=== PATIENT | female | born 1950 | race Caucasian/White ===

== ENCOUNTER 2018-11-30 10:49 | Outpatient (CLI) | payer MEDICARE, BC, SELFPAY ==
[2018-11-30 13:23] LABS: ALT 22 U/L (12-78); AST 16 U/L (15-37); Albumin 3.6 g/dL (3.4-5.0); Alkaline Phosphatase 117 U/L (46-116); Anion Gap 7.8 mmol/L (3-11); BUN 20 mg/dL (7-18); Bilirubin, Total 0.4 mg/dL (0.2-1.0); CO2 29.2 mmol/L (21.0-32.0); CREATININE 1.02 mg/dL (0.55-1.02); Calcium 9.3 mg/dL (8.5-10.1); Chloride 102 mmol/L (98-107); Estimated GFR 53.89 (mL/min/1.73m2); Glucose 92 mg/dL (70-100); Potassium 4.8 mmol/L (3.5-5.1); Sodium 139 mmol/L (136-145); Total Protein 6.8 g/dL (6.4-8.2)
[2018-11-30 13:32] LABS: Hemoglobin A1C 5.8 % (4.5-6.2)
== END 2018-11-30 11:09 ==
PROVIDERS: PCP Family Medicine; Visit Provider Family Medicine
DX: R73.01 Impaired fasting glucose (principal); E78.5 Hyperlipidemia, unspecified
CPT/HCPCS: 36415; 80053; 83036

== ENCOUNTER 2019-01-04 00:10 | Outpatient (CLI) | payer MEDICARE, BC, SELFPAY ==
--- NOTE | 2019-01-04 10:51 | DI.MAMMO_ITS ---
SYMPTOM/DIAGNOSIS: SCREENING, Z12.31 MAMMOGRAMS: Mammograms were interpreted according to the usual protocol including computer analysis with CAD system, tomosynthesis and C view imaging. Comparison is made with prior examinations. Breast density, Category B. No suspicious masses or microcalcifications are seen. There is no definite evidence of malignancy. IMPRESSION: Negative mammogram. Routine screening is recommended. Category 1. MQSA ASSESSMENT OF FINDINGS: Negative. Category 1. Patient will receive a letter notifying them of these results. BI-RADS category B. There are scattered areas of fibroglandular density.
== END 2019-01-04 00:30 ==
PROVIDERS: PCP Family Medicine; Visit Provider Family Medicine
DX: Z12.31 Encounter for screening mammogram for malignant neoplasm of breast (principal)
CPT/HCPCS: 77063; 77067

== ENCOUNTER 2019-10-07 14:38 | Outpatient (REF) | payer MEDICARE, BC, SELFPAY | END 2019-10-07 14:58 | LOC: LBN 14:38 | PROVIDERS: PCP Family Medicine; Visit Provider Family Medicine | DX: R19.7 Diarrhea, unspecified (principal) | CPT/HCPCS: 87177 ==

== ENCOUNTER 2020-02-14 21:46 | Observation (INO) | payer MEDICARE, BC, SELFPAY ==
[2020-02-14] VITALS (10 sets, daily range): BP systolic 116–128; BP diastolic 73–85; PULSE 59–75; RESP 14–26; TEMP 36.9; O2SAT 96–99
--- NOTE | 2020-02-14 22:08 | ED.GENADUL_ITS ---
Discharge Plan Disposition Patient Disposition: [facility] INPATIENT Condition: Stable Discharge Details Chief Complaint: Chest Pain Clinical Impression: Chest pain Admit Date/Time: 02/15/20 01:12 Admit Provider: Pastor Moreno Attending Provider: Pastor Moreno Primary Care Provider: Anum Thomas ED Provider: Abdoulaye Ibarra Medical Decision Making 70-year-old female presents from home via EMS. She reports 3 days of intermittent episodes of chest pressure and pushing it is associated with shortness of breath. It was worsened with climbing up a hill. She did not have syncope. She had a question of subjective elevated temperature but no do cumented fever. She was given 324 mg of aspirin by EMS. She arrives with unremarkable vital signs. Her initial EKG reveals normal sinus rhythm with a rate of 65, T wave inversions present in the anteroseptal leads, there is no ST segment elevation present, there is no comparison available. Chest x-ray with senescent changes, no acute infiltrate or other acute abnormality reported. Reported at 1135 pm, the patient's laboratories were reported as hemolyzed and being redrawn. Patient remains improved. Her laboratories are reassuring with an unremarkable d-dimer, negative troponin. With the escalating pattern of chest tightness is worse with exertion, T wave inversions on EKG, I do feel she merits admission for further management and rule out of myocardial ischemia. Lab Data Lab results reviewed: Yes I reviewed the patient's lab results. Labs: Laboratory Results - last 24 hr 02/14/20 02/14/20 02/14/20 22:14 22:14 23:30 WBC Cancelled RBC Cancelled Hgb Cancelled Hct Cancelled MCV Cancelled MCH Cancelled MCHC Cancelled RDW Cancelled Plt Count Cancelled MPV Cancelled Immature Gran % Cancelled Neutrophils % Cancelled Band Neutrophils % Cancelled Lymphocytes % Cancelled Atypical Lymphs % Cancelled Monocytes % Cancelled Eosinophils % Cancelled Basophils % Cancelled Metamyelocytes % Cancelled Myelocytes % Cancelled Promyelocytes % Cancelled Absolute Neutrophils Cancelled Absolute Lymphocytes Cancelled Absolute Monocytes Cancelled Absolute Eosinophils Cancelled Absolute Basophils Cancelled Nucleated RBCs Cancelled Differential Comment Cancelled Other Cell Type Cancelled RBC Morphology Cancelled Polychromasia Cancelled Hypochromasia Cancelled Poikilocytosis Cancelled Basophilic Stippling Cancelled Anisocytosis Cancelled Microcytosis Cancelled Macrocytosis Cancelled Spherocytes Cancelled Target Cells Cancelled Tear Drop Cells Cancelled Ovalocytes Cancelled Stomatocytes Cancelled [place] Bodies Cancelled Chelle Cells Cancelled Acanthocytes (Spur) Cancelled Schistocytes Cancelled D-Dimer 359 Sodium 141 Potassium 4.3 Chloride 106 Carbon Dioxide 28.0 Anion Gap 7.0 BUN 16 Creatinine 0.94 Estimated GFR/1.73 m2 58.87 Glucose 112 H Calcium 9.7 Magnesium 2.0 Total Bilirubin 0.3 AST 21 ALT 31 Alkaline Phosphatase 105 Troponin I < 0.05 Total Protein 7.2 Albumin 3.7 02/15/20 22:14 WBC 6.35 RBC 4.37 Hgb 14.4 Hct 42.4 MCV 97.0 H MCH 33.0 MCHC 34.0 RDW 12.3 Plt Count 248 MPV 11.3 H Immature Gran % 0.2 Neutrophils % 63.5 Band Neutrophils % Lymphocytes % 25.8 Atypical Lymphs % Monocytes % 6.9 Eosinophils % 3.0 Basophils % 0.6 Metamyelocytes % Myelocytes % Promyelocytes % Absolute Neutrophils 4.03 Absolute Lymphocytes 1.64 Absolute Monocytes 0.44 Absolute Eosinophils 0.19 Absolute Basophils 0.04 Nucleated RBCs Differential Comment Other Cell Type RBC Morphology Polychromasia Hypochromasia Poikilocytosis Basophilic Stippling Anisocytosis Microcytosis Macrocytosis Spherocytes Target Cells Tear Drop Cells Ovalocytes Stomatocytes [place] Bodies [place]o Cells Acanthocytes (Spur) Schistocytes D-Dimer Sodium Potassium Chloride Carbon Dioxide Anion Gap BUN Creatinine Estimated GFR/1.73 m2 Glucose Calcium Magnesium Total Bilirubin AST ALT Alkaline Phosphatase Troponin I Total Protein Albumin HPI General Mode of arrival: EMS . Date/Time Provider Initiated Documentation: 02/14/20 21:51 . Limitations to Documentation: no limitations . Information obtained by: patient and EMS . History of Present Illness 70 year old F presents to the emergency department with the chief complaint of Intermittent chest pressure for 3 days, described as moderate, Quality is described as dull, and is localized to the chest. Patient reports no radiation. Patient started experiencing this hour(s) and it has been intermittent. No relieving factors improve symptom(s), No exacerbating factors reported . Patient notes chest pain and shortness of breath; denies syncope. Patient did receive the following treatments prior to arrival, none Related Data Home Medications Medication Instructions Recorded Confirmed aspirin [Aspirin Low-Strength] 81 mg PO DAILY tab-cap 02/08/13 02/14/20 desipramine 25 mg tablet 25 mg PO BID #180 tab-cap 06/06/19 02/14/20 estradiol 10 mcg vaginal tablet 10 mcg VG three times weekly #36 06/06/19 02/14/20 tab nystatin 100,000 unit/gram topical 1 applic TOPICAL BID PRN #15 gm 06/06/19 02/14/20 cream propranolol 80 mg tablet 80 mg PO BID #180 tab-cap 06/06/19 02/14/20 vjfiwhs-ronnemjimv-RXC-caffeine 30 1 cap PO BID PRN #20 tab-cap 12/08/19 02/14/20 mg-50 mg-325 mg-40 mg capsule lorazepam 0.5 mg tablet 0.5 mg PO BID PRN #60 tab 01/19/20 02/14/20 albuterol sulfate 90 mcg/actuation 2 puff IH QID #8.5 gm 02/14/20 02/14/20 aerosol inhaler Previous Rx's Medication Instructions Recorded desipramine 25 mg tablet 25 mg PO BID #180 tab-cap 06/06/19 estradiol 10 mcg vaginal tablet 10 mcg VG three times weekly #36 06/06/19 tab nystatin 100,000 unit/gram topical 1 applic TOPICAL BID PRN #15 gm 06/06/19 cream propranolol 80 mg tablet 80 mg PO BID #180 tab-cap 06/06/19 nuocqrz-ndbjthlvfe-FHF-caffeine 30 1 cap PO BID PRN #20 tab-cap 12/08/19 mg-50 mg-325 mg-40 mg capsule lorazepam 0.5 mg tablet 0.5 mg PO BID PRN #60 tab 01/19/20 albuterol sulfate 90 mcg/actuation 2 puff IH QID #8.5 gm 02/14/20 aerosol inhaler Allergies Allergy/AdvReac Type Severity Reaction Status Date / Time shellfish derived Allergy Severe Can't Unverified 02/14/20 21:57 breath sumatriptan succinate Allergy Intermediate Hives Unverified 02/14/20 21:57 [From Imitrex] General Stated Complaint: Chest Pain OXANA: 2 Review of Systems Narrative: Travel to [place] but returned on November 16. No leg pain or swelling. No fever. No cough. 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; now abstinant Alcohol abuse (Inactive) Anemia (Resolved) Anemia (Inactive) Atrophy of vagina (Chronic) Lilo infection (Resolved) 05/17/15 Candidiasis (Inactive 05/17/15) Chlamydia infection (Resolved) Chlamydial infection (Inactive) Chronic left shoulder pain (Chronic 03/30/18) Depressive disorder (Resolved) chronic family problems; prolonged use of norpramine Endometriosis (Resolved) s/p laparotomy; exploratory Endometriosis (Inactive) Hiatal hernia (Chronic) Hyperlipidemia (Chronic 10/25/12) Impaired fasting glucose (Resolved) Intention tremor (Resolved) Internal hemorrhoids (Chronic) 11/15/14; [facility] Low back pain (Resolved 08/27/15) Osteopenia (Chronic) T scores -1.3; -1.0; -1.8 Pain of cervical facet joint (Chronic 08/08/13) Raynaud's disease (Chronic) Rectal hemorrhage (Resolved) internal hemorrhoid; hyperplastic tubular adenoma polyps Shoulder pain (Resolved) 05/22/14 Tension-type headache (Chronic) cyclical and occ. migraine Tubular adenoma (Resolved) Urinary tract infectious disease (Resolved) recurrent; prophylactic after intercourse most likely cystitis,not infectious Urinary tract infectious disease (Inactive) Surgical History section Colonoscopy - [facility] 2002;2013 H/O section (Resolved) History of bilateral ligation of fallopian tubes (Inactive) History of bilateral tubal ligation (Resolved) History of section (Inactive) Laparotomy Ligation of fallopian tube Status post laparotomy (Inactive) Family History Mother , AGE 94 Heart disease Hyperlipidemia Stroke Father , AGE 98 Lung cancer Brother No problems noted. Maternal Grandfather , AGE 36 Aneurysm Stroke Paternal Grandfather , GALLBLADDER at age 76 Stroke Heart disease Maternal Grandmother , AGE 98 Colon cancer Paternal Grandmother , AGE 75 Stroke Heart disease Son No problems noted. Son Lymphoma Social History (Reviewed 02/15/20 @ 01:27 by Pastor Jacques Smoking/Tobacco Use Status: Former Tobacco Use Quit Date: 11/16/73 Second Hand Exposure: Yes Alcohol Intake: current Alcohol Intake frequency: a few times a week Alcohol type: other Drug use: Never Substance use type: does not use Caregiver/Support person: No Household members: none Housing: house Communication Needs: Hard of Hearing Do you need help understanding health information?: Never Pets and animals: Yes Pets and animals: dog(s) Sexually active: No Do you think of yourself as: straight/heterosexual Current gender identity: female What is your relationship status?: How often do you talk on the phone with friends or family?: twice per week How often do you get together with friends or relatives?: twice per week How often do you attend uatsdin or uatsdin services?: 1-3 times per year Do you belong to any clubs or organized social groups?: yes Panel score (0-1 are the most socially isolated patients): 2 What type of physical activity do you participate in: other Details: snowshoeing Duration: 45-60 minutes/day Frequency: 3-4 times per week Neris/Anabaptism: Jew Special neris needs: No Seatbelt use: always Helmet use: Yes Helmet use: always Drive intox or ride w/intox bus driver supervisor: No Do you feel safe at home: Yes Do you feel safe in your relationship?: Yes Exam Narrative Exam Narrative: GEN: awake, alert, oriented 3. Pleasant, well groomed, interactive. HEAD: Normocephalic, atraumatic ENT: Mucous membranes moist, oropharynx unremarkable, External ear exam unremarkable EYES: PERRL, EOMI NECK: Full ROM, no GUEVARA, no menigismus CHEST/RESP: Nontender, clear to auscultation bilateral, no wheeze/rhonchi/rales CARDIOVASCULAR: RRR, no murmur, rub renny. 2+ Rad pulse bilateral ABDOMEN: Soft, nontender, no mass. +Bowel sounds EXT: Full ROM, no edema, no rash Neuro: Grossly normal neurologic exam, conversant, interactive. Psych: Speech fluent, thoughts congruent, affect normal Course Vital Signs Vital signs: Vital Signs Temperature 36.9 C 02/14/20 21:48 Pulse 75 02/14/20 21:48 Respiratory Rate 16 03/31/20 21:48 Temperature 36.9 C 03/31/20 21:48 Temperature Source Oral 02/14/20 21:48 Pulse 75 02/14/20 21:48 Respiratory Rate 15 02/14/20 21:58 Respiratory Effort 02/14/20 21:58 Blood Pressure Position Sitting 02/14/20 21:48 Oxygen Delivery Method Room Air 02/14/20 21:48 Oxygen Flow Rate 0 02/14/20 21:48
--- NOTE | 2020-02-14 22:40 | DI.RAD_ITS ---
EXAM: XR CHEST 2V PA LATERAL CLINICAL HISTORY: central chest pressure TECHNIQUE: 2D digital imaging was performed. COMPARISON: CHEST 2 VIEWS PA,LAT from 02/18/2018 FINDINGS: MEDIASTINUM: The aorta is mildly ectatic.. HEART: Normal size. PULMONARY VASCULATURE: Normal. LUNGS: Clear. PLEURAL SPACE: No pleural effusion or pneumothorax. BONE:Degenerative changes of the thoracic spine. IMPRESSION: No acute pulmonary findings. DATA REPOSITORY: RADIATION DOSE DELIVERED:
--- NOTE | 2020-02-14 23:06 | DI.VRAD_ITS ---
PROCEDURE INFORMATION: Exam: XR Chest, 2 Views Exam date and time: 02/14/2020 10:36 PM Age: 70 years old Clinical indication: Chest pain; Other: Central chest pressure TECHNIQUE: Imaging protocol: XR of the chest Views: 2 views. COMPARISON: CR CHEST 2 VIEWS PA,LAT 02/18/2018 9:44 AM FINDINGS: Lungs: Unremarkable. No consolidation. Pleural space: Unremarkable. No pleural effusion. No pneumothorax. Heart/Mediastinum: Unremarkable. No cardiomegaly. Vasculature: There is a tortuous descending aorta. Bones/joints: Unremarkable. IMPRESSION: Senescent changes with no acute infiltrate or other acute abnormality evident. Dictated and Authenticated by: Cosme Fowler MD. Ordering:CEASAR Stanford MD
[2020-02-14 23:07] LABS: D-Dimer 359 ng/mlFEU (<500)
[2020-02-14 23:58] LABS: ALT 31 U/L (14-59); AST 21 U/L (15-37); Albumin 3.7 g/dL (3.4-5.0); Alkaline Phosphatase 105 U/L (46-116); BUN 16 mg/dL (7-18); Bilirubin, Total 0.3 mg/dL (0.2-1.0); CREATININE 0.94 mg/dL (0.55-1.02); Calcium 9.7 mg/dL (8.5-10.1); Chloride 106 mmol/L (98-107); Estimated GFR 58.87 (mL/min/1.73m2); Glucose 112 mg/dL (74-106); Potassium 4.3 mmol/L (3.5-5.1); Sodium 141 mmol/L (136-145); Total Protein 7.2 g/dL (6.4-8.2)
[2020-02-15] VITALS (8 sets, daily range): BP systolic 99–120; BP diastolic 63–78; PULSE 60–71; RESP 15–19; TEMP 35.9–37; O2SAT 95–99
[2020-02-15 00:05] LABS: Troponin I < 0.05 ng/Ml (<0.06)
[2020-02-15 00:11] LABS: Abs Immature Grans 0.01 k/cumm (0.0-0.09); Absolute Basophil Count 0.04 k/cumm (0.0-0.2); Absolute Eosinophil Count 0.19 k/cumm (0.0-0.7); Absolute Lymphocyte Count 1.64 k/cumm (1.2-3.4); Absolute Monocyte Count 0.44 k/cumm (0.11-0.7); Absolute Neutrophil Count 4.03 k/cumm (1.2-6.7); Basophils % 0.6; HCT 42.4 % (36.0-46.0); HGB 14.4 g/dL (12.0-15.5); Immature Grans % 0.2 %; Lymphocytes % 25.8; Mean Platelet Volume 11.3 fL (8.0-11.0); Monocytes % 6.9; Neutrophils % 63.5; Platelet Count 248 x1000/uL (130-400); RBC 4.37 m/cumm (4.00-5.20); RBC Distribution Width 12.3 % (11.7-14.6)
[2020-02-15 00:12] LABS: White Blood Cell Count 6.35 k/cumm (4.4-10.8)
--- NOTE | 2020-02-15 01:27 | HPE_ITS ---
Date of service: 02/15/20 Time of Service: 01:27 Assessment and Plan Assessment and plan (1) Atypical chest pain: Start date: 02/14/20 Status: Acute Assessment and plan: This is a 70-year-old lady who is very physically active and traveling recently to [facility] with exertional retrosternal pressure and associated slight dyspnea but also diaphoresis with her episode just prior to reporting to the ED. Her EKG did show some T wave inversions with no comparison available. Her initial troponins have been negative. She will have a repeat EKG and reevaluation of risk factors for CAD with normal cardiology consultation and stress test prior to charge if available. This could done as an outpatient if her chest discomfort is resolving during this observation. She does have a history of panic attacks and anxiety as well as a history of headaches which have not been problematic with the episode. We could consider increasing her Ativan since this did seem to help when she was for admitted and trying to sleep. Of concern is her persistent residual sensation in her chest. We need to follow-up her EKG this morning. I also will check her lipid profile this morning. History of Present Illness History of Present Illness Chief Complaint: Intermittent chest pain with exertion Narrative: This is a 70-year-old lady who really has been traveling to [place], [place] at the first the year after spending 1 month with her son at the end of 2018 and then traveling locally in [place] more than 3 weeks ago with friends. She began to have symptoms of retro-sternal chest pressure as if an anvil was sitting on her chest 5 days prior to admission with her daily walks. Did have associated dyspnea and on the day of admission to the ED she did have associated diaphoresis. She had no radiation of the pain, no nausea or vomiting and no lightheadedness. She called her PCP and was to have an inhaler called in for her but was advised that she should be screened for COVID-19, which was her concern. She thinks that she may have had a slight fever as he was measured. She has had no cough or other upper respiratory symptoms. She has had panic attacks in the past and feels this is not similar. She has no history of CAD with have a strong family history of heart disease late in life. She states her cholesterols been normal in the past. She does take a baby aspirin daily. She is on a beta-anita for migraine prophylaxis (propranolol) but does not have a history of hypertension. She has had no GI or complaints. She does have trouble breathing which is been progressive and has been off her usual diet recently. She does have a history of a hiatal hernia and had an upper GI in the recent past with no knowledge of the results assuming it was okay. In the ED the patient did not receive nitroglycerin with a hi story migraine headaches and at the time I saw the patient he stated that her chest pressure was residually at 1 out of 10 and was 2 out of 10 when he came up from the ED. She did sleep shortly after receiving Ativan when she came to the floor. Review of Systems Narrative: 13 point review is otherwise unrevealing or stable. 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; now abstinant Alcohol abuse (Inactive) Anemia (Resolved) Anemia (Inactive) Atrophy of vagina (Chronic) Lilo infection (Resolved) 05/17/15 Candidiasis (Inactive 05/17/15) Chlamydia infection (Resolved) Chlamydial infection (Inactive) Chronic left shoulder pain (Chronic 03/30/18) Depressive disorder (Resolved) chronic family problems; prolonged use of norpramine Endometriosis (Resolved) s/p laparotomy; exploratory Endometriosis (Inactive) Hiatal hernia (Chronic) Hyperlipidemia (Chronic 10/25/12) Impaired fasting glucose (Resolved) Intention tremor (Resolved) Internal hemorrhoids (Chronic) 11/15/14; [facility] Low back pain (Resolved 08/27/15) Osteopenia (Chronic) T scores -1.3; -1.0; -1.8 Pain of cervical facet joint (Chronic 08/08/13) Raynaud's disease (Chronic) Rectal hemorrhage (Resolved) internal hemorrhoid; hyperplastic tubular adenoma polyps Shoulder pain (Resolved) 05/22/14 Tension-type headache (Chronic) cyclical and occ. migraine Tubular adenoma (Resolved) Urinary tract infectious disease (Resolved) recurrent; prophylactic after intercourse most likely cystitis,not infectious Urinary tract infectious disease (Inactive) Surgical History section Colonoscopy - [facility] 2002;2013 H/O section (Resolved) History of bilateral ligation of fallopian tubes (Inactive) History of bilateral tubal ligation (Resolved) History of section (Inactive) Laparotomy Ligation of fallopian tube Status post laparotomy (Inactive) Family History Mother , AGE 94 Heart disease Hyperlipidemia Stroke Father , AGE 98 Lung cancer Brother No problems noted. Maternal Grandfather , AGE 36 Aneurysm Stroke Paternal Grandfather , GALLBLADDER at age 76 Stroke Heart disease Maternal Grandmother , AGE 98 Colon cancer Paternal Grandmother , AGE 75 Stroke Heart disease Son No problems noted. Son Lymphoma Social History Smoking/Tobacco Use Status: Former Tobacco Use Quit Date: 11/16/73 Second Hand Exposure: Yes Alcohol Intake: current Alcohol Intake frequency: a few times a week Alcohol type: other Drug use: Never Substance use type: does not use Caregiver/Support person: No Household members: none Housing: house Communication Needs: Hard of Hearing Do you need help understanding health information?: Never Pets and animals: Yes Pets and animals: dog(s) Sexually active: No Do you think of yourself as: straight/heterosexual Current gender identity: female What is your relationship status?: How often do you talk on the phone with friends or family?: twice per week How often do you get together with friends or relatives?: twice per week How often do you attend uatsdin or anabaptism services?: 1-3 times per year Do you belong to any clubs or organized social groups?: yes Panel score (0-1 are the most socially isolated patients): 2 What type of physical activity do you participate in: other Details: snowshoeing Duration: 45-60 minutes/day Frequency: 3-4 times per week Neris/Pentecostalism: Jewish Special neris needs: No Seatbelt use: always Helmet use: Yes Helmet use: always Drive intox or ride w/intox semi truck driver: No Do you feel safe at home: Yes Do you feel safe in your relationship?: Yes Meds Home Medications and Allergies Home Medications Medication Instructions Recorded Confirmed Type aspirin [Aspirin Low-Strength] 81 mg PO DAILY tab-cap 02/08/13 02/14/20 History desipramine 25 mg tablet 25 mg PO BID #180 tab-cap 06/06/19 02/14/20 Rx estradiol 10 mcg vaginal tablet 10 mcg VG three times weekly #36 06/06/19 02/14/20 Rx tab nystatin 100,000 unit/gram topical 1 applic TOPICAL BID PRN #15 gm 06/06/19 02/14/20 Rx cream propranolol 80 mg tablet 80 mg PO BID #180 tab-cap 06/06/19 02/14/20 Rx qthkfka-pxukjxqanz-OEP-caffeine 30 1 cap PO BID PRN #20 tab-cap 12/08/19 02/14/20 Rx mg-50 mg-325 mg-40 mg capsule lorazepam 0.5 mg tablet 0.5 mg PO BID PRN #60 tab 01/19/20 02/14/20 Rx albuterol sulfate 90 mcg/actuation 2 puff IH QID #8.5 gm 02/14/20 02/14/20 Rx aerosol inhaler Allergies Allergy/AdvReac Type Severity Reaction Status Date / Time shellfish derived Allergy Severe Can't Unverified 02/14/20 21:57 breath sumatriptan succinate Allergy Intermediate Hives Unverified 02/14/20 21:57 [From Imitrex] Exam Narrative Exam Narrative: General: Patient appears appropriate for age, alert and oriented x3 and in no acute distress. She is moderately obese over the trunk. HEENT: Normocephalic, eyes with pupils equal and reactive to light symmetrically with extraocular movement intact and sclera anicteric, oropharynx with moist pink mucosa. External ears normal. Neck: Supple without JVD. Back: Without CVA tenderness. Lungs: Clear to auscultation and percussion with no focalizing adventitious sounds. Normal aeration. Breast: Exam deferred. Heart: Regular rate and rhythm with no murmurs or gallops appreciated. Abdomen: Obese contour, soft and nontender to palpation with notable hepatosplenomegaly. No guarding. Genitalia/rectal: Exam deferred. Extremities: Without clubbing cyanosis or edema, pulses intact. Skin: Normal color, warm and dry with actinic changes over sun exposed areas. Neuro: Cranial nerves II through XII grossly intact, motor and sensory intact without focalizing. Psych: Slightly anxious with pressured speech, mood normal otherwise. Remote and recent memory intact. No abnormal thought processes. Results Imaging Imaging Studies: Exam: XR Chest, 2 Views Exam date and time: 02/14/2020 10:36 PM Age: 70 years old Clinical indication: Chest pain; Other: Central chest pressure TECHNIQUE: Imaging protocol: XR of the chest Views: 2 views. COMPARISON: CR CHEST 2 VIEWS PA,LAT 02/18/2018 9:44 AM FINDINGS: Lungs: Unremarkable. No consolidation. Pleural space: Unremarkable. No pleural effusion. No pneumothorax. Heart/Mediastinum: Unremarkable. No cardiomegaly. Vasculature: There is a tortuous descending aorta. Bones/joints: Unremarkable. IMPRESSION: Senescent changes with no acute infiltrate or other acute abnormality evident. Dictated and Authenticated by: Cosme Fowler MD. Labs Result diagrams: 02/15/20 22:14 02/14/20 23:30 Labs: Laboratory Results - last 24 hr 02/14/20 02/14/20 02/14/20 22:14 22:14 23:30 WBC Cancelled RBC Cancelled Hgb Cancelled Hct Cancelled MCV Cancelled MCH Cancelled MCHC Cancelled RDW Cancelled Plt Count Cancelled MPV Cancelled Immature Gran % Cancelled Neutrophils % Cancelled Band Neutrophils % Cancelled Lymphocytes % Cancelled Atypical Lymphs % Cancelled Monocytes % Cancelled Eosinophils % Cancelled Basophils % Cancelled Metamyelocytes % Cancelled Myelocytes % Cancelled Promyelocytes % Cancelled Absolute Neutrophils Cancelled Absolute Lymphocytes Cancelled Absolute Monocytes Cancelled Absolute Eosinophils Cancelled Absolute Basophils Cancelled Nucleated RBCs Cancelled Differential Comment Cancelled Other Cell Type Cancelled RBC Morphology Cancelled Polychromasia Cancelled Hypochromasia Cancelled Poikilocytosis Cancelled Basophilic Stippling Cancelled Anisocytosis Cancelled Microcytosis Cancelled Macrocytosis Cancelled Spherocytes Cancelled Target Cells Cancelled Tear Drop Cells Cancelled Ovalocytes Cancelled Stomatocytes Cancelled [place] Bodies Cancelled [place] Cells Cancelled Acanthocytes (Spur) Cancelled Schistocytes Cancelled D-Dimer 359 Sodium 141 Potassium 4.3 Chloride 106 Carbon Dioxide 28.0 Anion Gap 7.0 BUN 16 Creatinine 0.94 Estimated GFR/1.73 m2 58.87 Glucose 112 H Calcium 9.7 Magnesium 2.0 Total Bilirubin 0.3 AST 21 ALT 31 Alkaline Phosphatase 105 Troponin I < 0.05 Total Protein 7.2 Albumin 3.7 02/15/20 22:14 WBC 6.35 RBC 4.37 Hgb 14.4 Hct 42.4 MCV 97.0 H MCH 33.0 MCHC 34.0 RDW 12.3 Plt Count 248 MPV 11.3 H Immature Gran % 0.2 Neutrophils % 63.5 Band Neutrophils % Lymphocytes % 25.8 Atypical Lymphs % Monocytes % 6.9 Eosinophils % 3.0 Basophils % 0.6 Metamyelocytes % Myelocytes % Promyelocytes % Absolute Neutrophils 4.03 Absolute Lymphocytes 1.64 Absolute Monocytes 0.44 Absolute Eosinophils 0.19 Absolute Basophils 0.04 Nucleated RBCs Differential Comment Other Cell Type RBC Morphology Polychromasia Hypochromasia Poikilocytosis Basophilic Stippling Anisocytosis Microcytosis Macrocytosis Spherocytes Target Cells Tear Drop Cells Ovalocytes Stomatocytes [place] Bodies Chelle Cells Acanthocytes (Spur) Schistocytes D-Dimer Sodium Potassium Chloride Carbon Dioxide Anion Gap BUN Creatinine Estimated GFR/1.73 m2 Glucose Calcium Magnesium Total Bilirubin AST ALT Alkaline Phosphatase Troponin I Total Protein Albumin Last Vital Signs Temp 36.9 C 02/14/20 21:48 Pulse 61 02/15/20 00:00 Resp 15 02/15/20 00:00 BP 115/73 02/15/20 00:00 Pulse Ox 98 02/15/20 00:00 COVID-19 Screening Traveled to [place] from one of the affected countries or regions?: Yes Recent travel in the [place] within the last 8 weeks?: Yes Recent out of the country travel within the last 8 weeks?: No Exposure or possible exposure to illness during travel?: Yes Had IN PERSON contact w/suspected or confirmed C-19 person: No Symptoms noted since travel?: Fever
[2020-02-15] MEDS: Aspirin E.C. 81 MG TABEC 162 MG PO (03:26)
[2020-02-15] MEDS: LORazepam 0.5 MG TAB PO ×2 (03:26→21:51)
[2020-02-15] MEDS: Heparin 5,000 UNITS/ML VIAL 5000 UNITS SC ×3 (03:27→20:37)
[2020-02-15 06:11] LABS: ALT 28 U/L (14-59); AST 18 U/L (15-37); Albumin 3.6 g/dL (3.4-5.0); Alkaline Phosphatase 99 U/L (46-116); BUN 15 mg/dL (7-18); Bilirubin, Total 0.4 mg/dL (0.2-1.0); Calcium 9.3 mg/dL (8.5-10.1); Chloride 106 mmol/L (98-107); Glucose 105 mg/dL (74-106); Potassium 3.9 mmol/L (3.5-5.1); Sodium 141 mmol/L (136-145); Total Protein 6.8 g/dL (6.4-8.2)
[2020-02-15 06:23] LABS: Troponin I < 0.05 ng/Ml (<0.06)
[2020-02-15] MEDS: Pantoprazole 40 MG VIAL IVP (08:15)
[2020-02-15] MEDS: Propranolol 40 MG TAB 80 MG PO (08:15)
[2020-02-15] MEDS: Aspirin E.C. 81 MG TABEC PO (08:15)
[2020-02-15] MEDS: Normal Saline Flush 10 ML SYR IVP (08:15)
[2020-02-15 08:40] LABS: Calculated LDL 196 mg/dL (<100); Cholesterol 286 mg/dL (<200); HDL Cholesterol 73 mg/dL (40-60); Triglyceride 87 mg/dL (<150)
--- NOTE | 2020-02-15 12:14 | PGE_ITS ---
Date of Service Date of service: 02/15/20 Time of Service: 12:14 Assessment and Plan Assessment and plan (1) Atypical chest pain: Status: Acute Assessment and plan: Trial of Carafate and Protonix to see if this relieves her discomfort given her history of hiatal hernia. If this improves her symptoms I do recommend an outpatient EGD in order to rule out Maldonado's esophagitis (2) EKG abnormality: Status: Acute Assessment and plan: Patient has a nonspecific T wave abnormality in the anteroseptal leads. We will follow this up with checking the results of her echocardiogram and arranging a stress MPI in the morning. This should be done on a treadmill to assess her physiologic capacity. If her stress MPI and echocardiogram are normal she will be discharged with follow-up with her PCP Subjective Subjective Interval history since last seen: Patient presented to the hospital with atypical substernal and left upper chest pain and exertional dyspnea. Her EKG demonstrated anterior T wave inversions which were not dynamic. They have remained the same since she was admitted yesterday evening. Her story initially sounded consistent with exertional angina and that she developed exertional chest pain while walking however she has had chest pain all day long today with negative troponin levels and no dynamic EKG changes. Unfortunately were unable to get a stress test today. We did manage to get an echocardiogram but the report is pending at this time. I did a bedside focused [id number]-ar-yhfu ultrasound of her heart and saw no wall motion abnormalities of her LV. Likewise RV appeared to be normal in size and function. She has a lot of symptoms that sound to be anxiety components including complaints of tightness in her throat and diaphoresis. Despite this she remains afebrile and her vital signs are stable. She seems to be excessively concerned about having COVID-19. She had no fever and no hypoxemia or visible dyspnea and her chest x-ray on admission showed no acute pulmonary abnormalities. Although she flew from [facility] back to [place] on November 16 this preceded the first reported case of COVID-19 in the [place]. She has traveled around the state of [place] but is not coming to contact with anyone that she knows who is positive for COVID-19. Because of her family history of coronary artery disease we will get a keep her until we can get a stress MPI and rule that out. I entertain doing a CTA of her chest however her d-dimer was normal yesterday. She has a history of a hiatal hernia and I was able to reproduce some of her discomfort when I was performing the subxiphoid view of her echocardiogram. I will start the patient on Protonix tonight and put her on Carafate with meals and at bedtime. We will get a stress MPI in the morning. If her stress MPI is negative if she still having chest pain I will entertain doing a CTA of her chest but given the negative d-dimer I doubt that this would be fruitful. Her chest x-ray showed no widening of her mediastinum. Exam Narrative Exam Narrative: Anxious elderly female who is alert and oriented person place time circumstance. Prior to my entering the room she was talking with the nurse about her dogs. At that time she seemed to be in no distress. Her nurse confirmed with me that when the patient is distracted talk about other subjects other than her health she seems to be calm and relaxed and not complain of any discomfort. HEENT is unremarkable. Neck is supple nontender no JVD normal carotid pulses no bruits. Lungs are clear to auscultation. Heart is regular rate and rhythm without murmur rub or gallop. Abdomen is obese soft with mild epigastric tenderness. No palpable masses no bruits. Lower extremities without peripheral cyanosis or edema. Objective Objective Clinical Data: Abnormal lab results 02/14/20 02/15/20 02/15/20 Range/Units 23:30 05:35 22:14 MCV 97.0 H (80-95) fL MPV 11.3 H (8.0-11.0) fL Glucose 112 H (74-106) mg/dL Total Cholesterol 286 H (<200) mg/dL LDL Cholesterol, Calc 196 H (<100) mg/dL Vital Signs Temperature 36.6 C 02/15/20 07:25 Temperature Source Tympanic 02/15/20 07:25 Pulse 64 02/15/20 07:25 Pulse Rhythm Regular 02/15/20 08:05 Pulse 63 02/14/20 23:40 Respiratory Rate 18 02/15/20 07:25 Respiratory Effort Non-Labored 02/15/20 08:05 Respiratory Depth Normal 02/15/20 08:05 Respiratory Pattern Normal 02/15/20 08:05 Blood Pressure 110/75 02/15/20 07:25 Blood Pressure Mean 87 02/14/20 23:34 Blood Pressure Position Sitting 02/14/20 21:48 Pulse Oximetry 95 02/15/20 07:25 Oxygen Delivery Method Room Air 02/15/20 07:25 Oxygen Flow Rate 0 02/15/20 07:25 Pain Level 2 02/15/20 08:05 Comment 02/15/20 06:56 Intake & Output 02/14/20 02/15/20 02/15/20 23:59 11:59 23:59 Intake Total 360 / 360 Balance 360 / 360 Weight 65.771 kg 66.6 kg Intake: Oral 360 / 360 Other: Urine Color Yellow Urine Appearance Clear Urine Odor Normal Voiding Methods Toilet Laboratory Results WBC 6.35 k/cumm (4.4-10.8) 02/15/20 22:14 RBC 4.37 m/cumm (4.00-5.20) 02/15/20 22:14 Hgb 14.4 g/dL (12.0-15.5) 02/15/20 22:14 Hct 42.4 % (36.0-46.0) 02/15/20 22:14 MCV 97.0 fL (80-95) H 02/15/20 22:14 MCH 33.0 pg (27.0-33.0) 02/15/20 22:14 MCHC 34.0 g/dL (32.0-36.0) 02/15/20 22:14 RDW 12.3 % (11.7-14.6) 02/15/20 22:14 Plt Count 248 x1000/uL (130-400) 02/15/20 22:14 MPV 11.3 fL (8.0-11.0) H 02/15/20 22:14 Immature Gran % 0.2 % 02/15/20 22:14 Neutrophils % 63.5 02/15/20 22:14 Band Neutrophils % Cancelled 02/14/20 22:14 Lymphocytes % 25.8 02/15/20 22:14 Atypical Lymphs % Cancelled 02/14/20 22:14 Monocytes % 6.9 02/15/20 22:14 Eosinophils % 3.0 02/15/20 22:14 Basophils % 0.6 02/15/20 22:14 Metamyelocytes % Cancelled 02/14/20 22:14 Myelocytes % Cancelled 02/14/20 22:14 Promyelocytes % Cancelled 02/14/20 22:14 Absolute Neutrophils 4.03 k/cumm (1.2-6.7) 02/15/20 22:14 Absolute Lymphocytes 1.64 k/cumm (1.2-3.4) 02/15/20 22:14 Absolute Monocytes 0.44 k/cumm (0.11-0.7) 02/15/20 22:14 Absolute Eosinophils 0.19 k/cumm (0.0-0.7) 02/15/20 22:14 Absolute Basophils 0.04 k/cumm (0.0-0.2) 02/15/20 22:14 Nucleated RBCs Cancelled 02/14/20 22:14 Differential Comment Cancelled 02/14/20 22:14 Other Cell Type Cancelled 02/14/20 22:14 RBC Morphology Cancelled 02/14/20 22:14 Polychromasia Cancelled 02/14/20 22:14 Hypochromasia Cancelled 02/14/20 22:14 Poikilocytosis Cancelled 02/14/20 22:14 Basophilic Stippling Cancelled 02/14/20 22:14 Anisocytosis Cancelled 02/14/20 22:14 Microcytosis Cancelled 02/14/20 22:14 Macrocytosis Cancelled 02/14/20 22:14 Spherocytes Cancelled 02/14/20 22:14 Target Cells Cancelled 02/14/20 22:14 Tear Drop Cells Cancelled 02/14/20 22:14 Ovalocytes Cancelled 02/14/20 22:14 Stomatocytes Cancelled 02/14/20 22:14 [place] Bodies Cancelled 02/14/20 22:14 [place] Cells Cancelled 02/14/20 22:14 Acanthocytes (Spur) Cancelled 02/14/20 22:14 Schistocytes Cancelled 02/14/20 22:14 D-Dimer 359 ng/mlFEU (<500) 02/14/20 22:14 Sodium 141 mmol/L (136-145) 02/15/20 05:35 Potassium 3.9 mmol/L (3.5-5.1) 02/15/20 05:35 Chloride 106 mmol/L (98-107) 02/15/20 05:35 Carbon Dioxide 26.0 mmol/L (21.0-32.0) 02/15/20 05:35 Anion Gap 9.0 mmol/L (3-11) 02/15/20 05:35 BUN 15 mg/dL (7-18) 02/15/20 05:35 Creatinine 0.90 mg/dL (0.55-1.02) 02/15/20 05:35 Estimated GFR/1.73 m2 >= 60.00 (mL/min/1.73m2) 02/15/20 05:35 Glucose 105 mg/dL (74-106) 02/15/20 05:35 Calcium 9.3 mg/dL (8.5-10.1) 02/15/20 05:35 Magnesium 2.0 mg/dL (1.8-2.4) 02/14/20 23:30 Total Bilirubin 0.4 mg/dL (0.2-1.0) 02/15/20 05:35 AST 18 U/L (15-37) 02/15/20 05:35 ALT 28 U/L (14-59) 02/15/20 05:35 Alkaline Phosphatase 99 U/L (46-116) 02/15/20 05:35 Troponin I < 0.05 ng/Ml (<0.06) 02/15/20 05:35 Total Protein 6.8 g/dL (6.4-8.2) 02/15/20 05:35 Albumin 3.6 g/dL (3.4-5.0) 02/15/20 05:35 Triglycerides 87 mg/dL (<150) 02/15/20 05:35 Total Cholesterol 286 mg/dL (<200) H 02/15/20 05:35 LDL Cholesterol, Calc 196 mg/dL (<100) H 02/15/20 05:35 HDL Cholesterol 73 mg/dL (40-60) 02/15/20 05:35
--- NOTE | 2020-02-15 12:30 | PDOC.CMIN ---
- If Service Date Differs Date of service: 02/15/20 Time of Service: 12:30 Care Management Initial Assess REASON FOR HOSPITALIZATION:: Chest Pain PAST MEDICAL HISTORY/PAST SURGICAL HISTORY:: ADD, intention tremor. depression, tension headaches. raynaud's disease, osteopenia, hyperlipemia, hital hernia, chronic left shoulder pain. Surgical hx , bilateral ligation of tubes, laparotomy. PREVIOUS FUNCTIONAL STATUS/SOCIAL/FAMILY SUPPORTS:: Lesli lives in her own home in [place], [place] she does have a SO who lives with her part of the year, her children are grown. She does have a dog Zuleika who she enjoys walks with. She states she snow shoes most days and tries to stay active. She is independent at baseline and does not have any services. She retired from [employer]. CURRENT FUNCTIONAL STATUS:: Lesli is alert and engaged during assessment. She states that she continues to have the chest pressure she states it is not as bad as last night. However she states it is still present and has her concerned. She is hopeful she will have a stress test prior to discharge, she is on telemetry. She states that she was very nervous when she called the ambulance and that she felt confused and disoriented when the pain started. CM did review with provider patients continued feeling of chest pressure. Patient states she has a family history of cardiac disease her mother had high cholesterol and histroy of UT's x 2. ADVANCE DIRECTIVES:: On file agent is Juice is first agent and Reggie is her second. Has patient been provided with information about the portal?: Yes Did the patient sign up for the portal?: Yes (Already enrolled) CODE STATUS:: Full Code INSURANCE COVERAGE / FINANCIAL ISSUES:: Medicare, BCBS CURRENT HOME/COMMUNITY SERVICES/EQUIPMENT:: None PRIMARY CARE PHYSICIAN:: POTENTIAL DISCHARGE NEEDS:: Folow up with primary care as directed PATIENT/FAMILY EDUCATION NEEDS:: Discharge education, limitations and follow up plan of care including ask me three and self management ANTICIPATED BARRIERS TO DISCHARGE:: Patient has a stress test ordered it cannot be compelted until 02/16/2020 due to no cardiology in house today. She continues to have chest pressure and will need the test prior to discharge per provider. TRANSPORTATION:: Via private car with family at time of discharge PLAN:: Lesli will be discharged home when she is medically ready. She is being monitored on telemetry awaiting echo and stress test. She will contiuned to be monitored. CM will continue to follow and assess for discharged needs.
--- NOTE | 2020-02-15 14:03 | DI.US_ITS ---
APPROVED REPORT EXAM: Comprehensive 2D, Doppler, and color-flow Echocardiogram Patient Location: In-Patient Room/Bed: 215A Supervisor Special Effects: Abby Segura RDCS (AE) Conclusion Normal left ventricular wall thickness and chamber size. Estimated ejection fraction is 55 to 60%. There are no segmental wall motion abnormalities Right ventricle is not well visualized. Other chambers are normal in size Aortic valve is structurally normal without regurgitation or stenosis Mitral leaflets are thickened. There is trace mitral regurgitation There is trace tricuspid regurgitation. Tricuspid valve is structurally normal Wall motion Left Ventricle The left ventricle is normal size. The left ventricular systolic function is normal. The left ventric ular ejection fraction is within the normal range. There is normal left ventricular wall thickness. T here is no ventricular septal defect visualized. LVEF is 55-60%. Right Ventricle Right ventricle is not well visualized. Right ventricular systolic function could not be assessed. Atria The left atrium size is normal. The right atrium size is normal. The interatrial septum is intact wit h no evidence for an atrial septal defect. Aortic Valve Aortic valve is grossly normal in structure. Aortic valve is trileaflet. There is no aortic valvular stenosis. Mitral Valve Mitral valve leaflets are thickened. No evidence of mitral valve stenosis. Trace mitral regurgitation . Tricuspid Valve The tricuspid valve is normal in structure. There is no tricuspid valve stenosis. Trace tricuspid reg urgitation. Pulmonic Valve Pulmonic valve is not well visualized. There is no pulmonic valvular stenosis. There is no pulmonic v alvular regurgitation. Great Vessels The aortic root is normal in size. Ascending aorta is not well visualized. Aortic arch is normal in c aliber. Pericardium There is no pericardial effusion. 2D Dimensions IVSD d PLAX 0.72 cm F: 0.6-1.0 LVPW d PLAX 0.72 cm F: 0.6 - 1.0 LVID d PLAX 4.58 cm F: 3.8 - 5.2 LVDs 3.30 cm F: 2.2 - 3.5 Ao Root d 2.51 cm F: 2.7 - 3.3 Ao Asc Diam d 2.97 cm F: 2.3 - 3.1 LV EF Teichholz 53.7 % FS 27.65 % LV Diastology MV E' medial 0.078 (>0.07 m/s) E/A Ratio 1.2 LV E/e MED 9.40 (<14) MV E Vmax 0.74 (0.4-1.3 m/s) MV E' lateral 0.073 (>0.1 m/s) MV A Vmax 0.60 (0.4-1.3 m/s) LV E/e LAT 10.15 (<14) MV E/A Ratio 1.14 MV E/E' medial 9.41 MV E/E' lateral 10.15 Aortic Valve LVOT Area 2.87 cm2 AoV Area Vmax 1.91 cm2 LVOT Vmax 0.83 m/s AoV Area/ BSA (Vmax) 1.17 cm2/m2 LVOT Mean Eulogio. 0.58 m/s TENZIN Mean Eulogio. 2.11 cm2 LVOT Peak Grad 2.7 mmHg TENZIN Mean Eulogio. Index 1.29 cm2/m2 LVOT Mean Grad 1.5 mmHg LVOT VTI 0.172 m LVOT Diam s 1.90 cm (M/F) 1.5-2.5 AoV Vmax 1.25 (0.5-1.3 m/s) Velocity Ratio 0.66 AoV Mean Eulogio. 0.79 m/s AoV Peak Grad 6.2 mmHg LVOT SV 49.34 mL AoV Mean Grad 2.9 (<5 mmHg) AoV VTI 0.213 (0.18-0.25 m) AoV Area VTI 2.31 (2.5-4.5 cm2) AoV Area/ BSA (VTI) 1.42 cm/m2 Mitral Valve MV DT 247 (160-240 msec) MV PHT 72 msec MV Area PHT 3.07 cm2 Pulmonary Valve PV Vmax 0.75 (0.5-1.5 m/s) RVOT Peak Gr. 1.47 mmHg PV Peak Grad 2.3 mmHg RVOT Mean Gr. 0.75 mmHg PV Mean Grad 1.3 mmHg RVOT VTI 0.133 m PV VTI 0.152 m RVOT Vmax 0.61 m/s Tricuspid Valve TR Peak Grad 20.9 mmHg TR Vmax 2.29 m/s
--- NOTE | 2020-02-15 14:17 | CHAPLAIN ---
Lesli was resting in bed when I visited. She told me about the chest pain that brought her call the ambulance to and to [facility]. She continues to be concerned about chest pressure. She lives alone and said she was scared when she had the chest pain. 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 She has been in touch with him by phone and he was taking care of her dogs at her house. I left when he called to speak with Lesli.
[2020-02-15 16:09] LABS: Bilirubin Negative (Negative); Blood Negative (Negative); Clarity Clear (Clear); Glucose Negative (Negative); Ketones Negative (Negative); Leukocyte Esterase Moderate (Negative); Nitrite Negative (Negative); Urobilinogen 0.2 EU/dL (Up TO 0.2); pH 5.5 (5-8)
[2020-02-15 16:25] LABS: Bacteria Moderate HPF (Negative); C & S Indicated? Yes; Casts Negative LPF (Negative); Crystals Negative HPF (Negative); Epithelial Cells Few HPF (Negative); Mucus Negative (Negative); Other Cells Negative (Negative); RBC Negative HPF (0-2)
[2020-02-15] MEDS: Atorvastatin 40 MG TAB PO (20:37)
[2020-02-15] MEDS: Pantoprazole 40 MG TABCR PO (21:39)
[2020-02-15] MEDS: Sucralfate 1 GM TAB PO (21:39)
--- NOTE | 2020-02-16 | DI.NM_ITS ---
APPROVED REPORT Exam: Pharmacologic Patient Location: In-Patient Room/Bed: 215 Stress Nurse: Magda Anaya RN BMI: 28.51 Baseline Rhythm: Sinus Rhythm Comment: T wave inversions in precordial leads. Indications: Patient presented to the ED on 02/15/2020 with on and off exertional chest pressure (acros s chest), like an ???anvil sitting on my chest??? with associated ???tinglyness all over??? and ???co nfusion??? since Thursday. In the ER her EKG did show some T wave inversions, but has had negative trop onins. Medical History Medical History: Anxiety, Panic Attacks, Depression, ADD. Cardiac Medications: Aspirin, Propranolol (for Migraines) Allergies: Shellfish Cardiac Risk Factors: FHX of CAD, Hyperlipidemia Previous Cardiac Procedures: None Pretest Chest Pain Characteristics: Chest pressure rated 1/10 Exercise History: Physically active Lung Sounds: Clear to auscultation Heart Sounds: Regular Stress Test Details Test: Pharmacologic stress testing performed using 0.4 mg of regadenoson per 5 mL given IV over 10 s econds. Reason for pharmacologic stress test: This nurse consulted with Dr. Rasmussen--pharmacological test avery mended.. Nuclear Acquisition: Rest Tc-99m/Stress Tc-99m 1 day Rest Isotope: Tc-99m Sestamibi. Dose: 10.6 Date: 02/16/2020 Injection Time: 0830 Stress Isotope: Tc-99m Sestamibi. Dose: 33.3 Date: 02/16/2020 Injection Time: 1105 HR Resting HR Supine: 97 bpm Max Heart Rate (APMHR): 150 bpm Target HR (85% APMHR): 127 bpm Max HR Achieved: 128 bpm % of APMHR: 85 BP Resting BP Supine: 120/100 mmHg Max BP: 120/100 mmHg ECG Resting ECG: Sinus Rhythm Comment: T wave inversions in precordial leads Clinical Stress Symptoms: Chest pressure, throat and facial tightness post Lexiscan injection. Stress ECG Conclusion 1. The resting electrocardiogram showed diffuse ST-T abnormalities 2. The patient underwent pharmacologic stress. Blunted blood pressure response to stress, resting hy pertension. Peak heart rate was 85% of predicted for age 3. Electrocardiographically the test was nondiagnostic due to resting ST-T abnormalities Protocol Used: Regadenoson Stress Test Summary STAGE HR BP Symptoms NOTES Supine 97 120/100 1 min post Lexiscan injection 125 120/98 3 min post Lexiscan injection 126 122/94 6 min post Lexiscan injection 119 128/90 9 min post Lexiscan injection 115 126/94 12 min post Lexiscan injection 15 min post Lexiscan injection MPI Conclusion Normal myocardial perfusion, without evidence of ischemia or prior myocardial infarction Calculated ejection fraction was 90%
[2020-02-16 00:10] VITALS: BP 98/62; PULSE 79; RESP 16; TEMP 36.5; O2SAT 97
[2020-02-16 04:05] VITALS: BP 109/75; PULSE 84; RESP 17; TEMP 36.9; O2SAT 96
[2020-02-16] MEDS: Heparin 5,000 UNITS/ML VIAL 5000 UNITS SC ×2 (04:12→12:32)
[2020-02-16 06:39] LABS: HCT 40.8 % (36.0-46.0); HGB 13.8 g/dL (12.0-15.5); Mean Corp. HGB Concentration 33.8 g/dL (32.0-36.0); Mean Corpuscular Hemoglobin 32.9 pg (27.0-33.0); Mean Corpuscular Volume 97.4 fL (80-95); Mean Platelet Volume 10.6 fL (8.0-11.0); Platelet Count 213 x1000/uL (130-400); RBC 4.19 m/cumm (4.00-5.20); RBC Distribution Width 12.2 % (11.7-14.6); White Blood Cell Count 5.59 k/cumm (4.4-10.8)
[2020-02-16 07:40] VITALS: BP 99/67; PULSE 98; RESP 16; TEMP 36.8; O2SAT 98
--- NOTE | 2020-02-16 08:21 | PDOC.CMPRO ---
- If Service Date Differs Date of service: 02/16/20 Time of Service: 08:21 Care Management Progress Note S/O: A: Lesli is a 70 year old woman admitted on 02/15/20 with atypical chest pain P:Lesli will be discharged home when she is medically ready. She is being monitored on telemetry awaiting echo and stress test. She will contiune to be monitored. CM will continue to follow and assess for discharged needs.
[2020-02-16] MEDS: Regadenoson 0.4 MG/5 ML SYR IVP (11:52)
--- NOTE | 2020-02-16 11:55 | PGE_ITS ---
Date of Service Date of service: 02/16/20 Time of Service: 11:56 Assessment and Plan Assessment and plan (1) Atypical chest pain: Status: Acute Assessment and plan: Although the patient has a history of hiatal hernia I think her chest pain is more anxiety provoked and represents a panic attack. We will give her a trial of sertraline starting at [address] Yessenia marrufo will adjust it further from there. If her panic attacks or not improved I would suggest looking for alternative causes particularly if her blood pressure is labile then it would be appropriate to check for pheochromocytoma. However I think we should start with treatment of her obvious symptoms which are more in line with panic attacks and anxiety. Patient's propranolol was held last night for her stress MPI today. I am sure this contributed to her panic attack this morning (2) EKG abnormality: Status: Acute Assessment and plan: Is unclear as to whether her T wave changes are old or new. Nevertheless she has a normal LV function on her echocardiogram and if her stress MPI is normal then no further inpatient work-up is needed at this time. Subjective Subjective Interval history since last seen: Patient underwent a stress MPI. She states she did not do the treadmill but rather had the Lexiscan. Results are pending at this time. Patient was brought back to the floor from her stress test on a wheelchair she was very tearful and emotionally upset. She says she is tired of being poked and prodded. She admits she has been under a lot of stress lately and thinks that this all may be a panic attack. I would concur with her. I told her that her echocardiogram was normal and if her stress MPI is normal will be discharged her this afternoon. She says that she is used Ativan in the past for anxiety and helps her sleep and calm her down. I suggested that she go on an SSRI to help with anxiety. Dr. Thomas was here in the hospital and stopped to see Mrs. Randall. Dr. Thomas concurs and the patient has a lot of anxiety and may benefit from sertraline. Exam Narrative Exam Narrative: Tearful female but alert and oriented person place time circumstance. Lungs are clear to auscultation. Heart is regular rate and rhythm without murmur rub or gallop. Objective Objective Clinical Data: Abnormal lab results 02/15/20 02/16/20 Range/Units 10:15 06:10 MCV 97.4 H (80-95) fL Ur Leukocyte Esterase Moderate H (Negative) Vital Signs Temperature 36.8 C 02/16/20 07:40 Temperature Source Tympanic 02/16/20 07:40 Pulse 98 H 02/16/20 07:40 Pulse Rhythm Regular 02/16/20 09:58 Pulse 63 02/14/20 23:40 Respiratory Rate 16 02/16/20 07:40 Respiratory Effort Non-Labored 02/16/20 09:58 Respiratory Depth Normal 02/16/20 09:58 Respiratory Pattern Normal 02/16/20 09:58 Blood Pressure 99/67 L 02/16/20 07:40 Blood Pressure Mean 87 02/14/20 23:34 Blood Pressure Position Sitting 02/14/20 21:48 Pulse Oximetry 98 02/16/20 07:40 Oxygen Delivery Method Room Air 02/16/20 07:40 Oxygen Flow Rate 0 02/16/20 07:40 Pain Level 1 02/16/20 07:40 Comment 02/15/20 06:56 Intake & Output 02/15/20 02/15/20 02/16/20 11:59 23:59 11:59 Intake Total 360 / 600 240 / 600 Balance 360 / 600 240 / 600 Weight 66.6 kg 66 kg Intake: Oral 360 / 600 240 / 600 Other: Urine Color Yellow Yellow Urine Appearance Clear Clear Clear Urine Odor Normal Comment per patient patient has had difficulty with self elimination here, she feels it is due to the stress r/t testing Voiding Methods Toilet Laboratory Results WBC 5.59 k/cumm (4.4-10.8) 02/16/20 06:10 RBC 4.19 m/cumm (4.00-5.20) 02/16/20 06:10 Hgb 13.8 g/dL (12.0-15.5) 02/16/20 06:10 Hct 40.8 % (36.0-46.0) 02/16/20 06:10 MCV 97.4 fL (80-95) H 02/16/20 06:10 MCH 32.9 pg (27.0-33.0) 02/16/20 06:10 MCHC 33.8 g/dL (32.0-36.0) 02/16/20 06:10 RDW 12.2 % (11.7-14.6) 02/16/20 06:10 Plt Count 213 x1000/uL (130-400) 02/16/20 06:10 MPV 10.6 fL (8.0-11.0) 02/16/20 06:10 Immature Gran % 0.2 % 02/15/20 22:14 Neutrophils % 63.5 02/15/20 22:14 Band Neutrophils % Cancelled 02/14/20 22:14 Lymphocytes % 25.8 02/15/20 22:14 Atypical Lymphs % Cancelled 02/14/20 22:14 Monocytes % 6.9 02/15/20 22:14 Eosinophils % 3.0 02/15/20 22:14 Basophils % 0.6 02/15/20 22:14 Metamyelocytes % Cancelled 02/14/20 22:14 Myelocytes % Cancelled 02/14/20 22:14 Promyelocytes % Cancelled 02/14/20 22:14 Absolute Neutrophils 4.03 k/cumm (1.2-6.7) 02/15/20 22:14 Absolute Lymphocytes 1.64 k/cumm (1.2-3.4) 02/15/20 22:14 Absolute Monocytes 0.44 k/cumm (0.11-0.7) 02/15/20 22:14 Absolute Eosinophils 0.19 k/cumm (0.0-0.7) 02/15/20 22:14 Absolute Basophils 0.04 k/cumm (0.0-0.2) 02/15/20 22:14 Nucleated RBCs Cancelled 02/14/20 22:14 Differential Comment Cancelled 02/14/20 22:14 Other Cell Type Cancelled 02/14/20 22:14 RBC Morphology Cancelled 02/14/20 22:14 Polychromasia Cancelled 02/14/20 22:14 Hypochromasia Cancelled 02/14/20 22:14 Poikilocytosis Cancelled 02/14/20 22:14 Basophilic Stippling Cancelled 02/14/20 22:14 Anisocytosis Cancelled 02/14/20 22:14 Microcytosis Cancelled 02/14/20 22:14 Macrocytosis Cancelled 02/14/20 22:14 Spherocytes Cancelled 02/14/20 22:14 Target Cells Cancelled 02/14/20 22:14 Tear Drop Cells Cancelled 02/14/20 22:14 Ovalocytes Cancelled 02/14/20 22:14 Stomatocytes Cancelled 02/14/20 22:14 Bailon-Hawkins Bodies Cancelled 02/14/20 22:14 Chelle Cells Cancelled 02/14/20 22:14 Acanthocytes (Spur) Cancelled 02/14/20 22:14 Schistocytes Cancelled 02/14/20 22:14 D-Dimer 359 ng/mlFEU (<500) 02/14/20 22:14 Sodium 141 mmol/L (136-145) 02/15/20 05:35 Potassium 3.9 mmol/L (3.5-5.1) 02/15/20 05:35 Chloride 106 mmol/L (98-107) 02/15/20 05:35 Carbon Dioxide 26.0 mmol/L (21.0-32.0) 02/15/20 05:35 Anion Gap 9.0 mmol/L (3-11) 02/15/20 05:35 BUN 15 mg/dL (7-18) 02/15/20 05:35 Creatinine 0.90 mg/dL (0.55-1.02) 02/15/20 05:35 Estimated GFR/1.73 m2 >= 60.00 (mL/min/1.73m2) 02/15/20 05:35 Glucose 105 mg/dL (74-106) 02/15/20 05:35 Calcium 9.3 mg/dL (8.5-10.1) 02/15/20 05:35 Magnesium 2.0 mg/dL (1.8-2.4) 02/14/20 23:30 Total Bilirubin 0.4 mg/dL (0.2-1.0) 02/15/20 05:35 AST 18 U/L (15-37) 02/15/20 05:35 ALT 28 U/L (14-59) 02/15/20 05:35 Alkaline Phosphatase 99 U/L (46-116) 02/15/20 05:35 Troponin I < 0.05 ng/Ml (<0.06) 02/15/20 05:35 Total Protein 6.8 g/dL (6.4-8.2) 02/15/20 05:35 Albumin 3.6 g/dL (3.4-5.0) 02/15/20 05:35 Triglycerides 87 mg/dL (<150) 02/15/20 05:35 Total Cholesterol 286 mg/dL (<200) H 02/15/20 05:35 LDL Cholesterol, Calc 196 mg/dL (<100) H 02/15/20 05:35 HDL Cholesterol 73 mg/dL (40-60) 02/15/20 05:35 Urine Color Yellow (Yellow) 02/15/20 10:15 Urine Clarity Clear (Clear) 02/15/20 10:15 Urine pH 5.5 (5-8) 02/15/20 10:15 Ur Specific [place] 1.010 (1.005-1.025) 02/15/20 10:15 Urine Protein Negative mg/dL (Negative) 02/15/20 10:15 Urine Ketones Negative mg/dL (Negative) 02/15/20 10:15 Urine Blood Negative (Negative) 02/15/20 10:15 Urine Nitrite Negative (Negative) 02/15/20 10:15 Urine Bilirubin Negative (Negative) 02/15/20 10:15 Urine Urobilinogen 0.2 EU/dL (Up TO 0.2) 02/15/20 10:15 Ur Leukocyte Esterase Moderate (Negative) H 02/15/20 10:15 Urine RBC Negative HPF (0-2) 02/15/20 10:15 Urine WBC 5-10 HPF (0-5) 02/15/20 10:15 Ur Epithelial Cells Few HPF (Negative) 02/15/20 10:15 Urine Crystals Negative HPF (Negative) 02/15/20 10:15 Urine Bacteria Moderate HPF (Negative) 02/15/20 10:15 Urine Casts Negative LPF (Negative) 02/15/20 10:15 Urine Mucus Negative (Negative) 02/15/20 10:15 Urine Other Negative (Negative) 02/15/20 10:15 Ur Culture Indicated? Yes 02/15/20 10:15 Urine Glucose Negative mg/dL (Negative) 02/15/20 10:15
[2020-02-16 12:05] VITALS: BP 137/93; PULSE 110; RESP 18; TEMP 35.5; O2SAT 100
[2020-02-16] MEDS: Aspirin E.C. 81 MG TABEC PO (12:34)
[2020-02-16] MEDS: Propranolol 40 MG TAB 80 MG PO (12:34)
[2020-02-16] MEDS: Sucralfate 1 GM TAB PO ×2 (12:34)
[2020-02-16] MEDS: Sertraline 50 MG TAB PO (13:59)
[2020-02-16] MEDS: Normal Saline Flush 10 ML SYR IVP (14:20)
--- NOTE | 2020-02-16 14:52 | PDOC.CMDIS ---
- If Service Date Differs Date of service: 02/16/20 Time of Service: 14:52 LACE Index Scoring Tool - Questions: Length of Stay (in days): 2 Acuity (Admit via E.D.?): Yes E.D. Visits: 1 - Answers: Total Score: 6 Risk of Readmission: Low Risk Care Management Discharge Reason for Hospitalization: Chest Pain Discharge Plan: Lesli will follow up with her primary care as directed. CM coordianted transportation home through [facility]. She will be started on new medications per provider. Discharge instructions to be reviewed by nursing prior to discharge. Patient/Family Education Needs: Discharge instructions, limitations and follow up plan of care including ask me three and self management.
[2020-02-16 15:35] VITALS: BP 156/61; PULSE 71; RESP 19; TEMP 36.4; O2SAT 98
--- NOTE | 2020-02-16 15:35 | DSE_ITS ---
Date of service: 02/16/20 Time of Service: 15:35 DS: Diagnosis Discharge Diagnosis (1) Atypical chest pain: Status: Acute Asessment and Plan: Patient underwent serial EKGs and serial troponin levels as well as an echocardiogram and a Lexiscan stress MPI. EKGs demonstrated non-dynamic T wave inversions in the anteroseptal leads. Echocardiogram showed normal LV function with no regional wall motion abnormalities. MPI study showed no ischemic changes. Recommend treatment includes treatment of her anxiety and panic attacks with sertraline. If no improvement then recommend further work-up for GI causes. Of note the patient had a normal d-dimer study on admission and therefore CTA of the chest was not performed. (2) EKG abnormality: Status: Acute (3) Anxiety disorder: Status: Acute Asessment and Plan: Patient was started on sertraline 50 mg daily while in the hospital. Further titration of her dose will be performed by her PCP based on the patient's symptomatic response. Discharge Plan Disposition Patient Disposition: HOME Condition: Stable Discharge Details Chief Complaint: Chest Pain Clinical Impression: Chest pain Reason For Visit: ATYPICAL CHEST PAIN Admit Date/Time: 02/15/20 01:12 Admit Provider: Pastor Moreno Attending Provider: Pastor Moreno Primary Care Provider: Anum Thomas ED Provider: Abdoulaye Ibarra Hospital Course Hospital Course: Patient was admitted with atypical chest pain associated with non-dynamic anterior T wave abnormalities. Serial troponin levels were within normal limits. D-dimer level was checked on admission and was within normal limits. Chest x-ray showed no cardiopulmonary radiologic abnormalities. Patient underwent echocardiography that showed normal left ventricular systolic function with no wall motion abnormalities. Lexiscan stress MPI demonstrated no ischemia changes. Patient was treated with Protonix and Carafate with no change in her chest discomfort. Patient was started on sertraline 50 mg daily for anxiety. On the day of discharge patient was seen with her primary care provider Dr. Anum Thomas who agreed with starting the patient on sertraline. Home Meds and New Rx's Prescriptions: New sertraline 50 mg tablet 50 mg PO DAILY Qty: 30 RF: 0 Continued desipramine 25 mg tablet 25 mg PO BID Qty: 180 RF: 12 estradiol [Vagifem] 10 mcg tablet 10 mcg VG three times weekly Qty: 36 RF: 12 nystatin 100,000 unit/gram cream 1 applic Topical BID PRN (Reason: rash) Qty: 15 RF: 0 propranolol 80 mg tablet 80 mg PO BID Qty: 180 RF: 4 aspirin [Aspirin Low-Strength] 81 MG tablet,chewable 81 mg PO DAILY RF: 0 [id number] [Fiorinal-Codeine #3] 11-76-115-40 mg capsule 1 cap PO BID PRN Qty: 20 RF: 0 lorazepam 0.5 mg tablet 0.5 mg PO BID PRN (Reason: anxiety) Qty: 60 RF: 2 albuterol sulfate 90 mcg/actuation HFA aerosol inhaler 2 puff IH QID Qty: 8.5 RF: 4 Discharge Instructions Instructions: Noncardiac Chest Pain (DC), Anxiety (DC) Activity:: Activity as Tolerated Equipment/Supplies:: No Equipment Needed Diet:: As Tolerated Discharge Orders Discharge Orders: Discharge Order (Routine); Ordered 02/16/20 Ordered By: Jun Luther DS: Summary Status at Discharge Functional status at discharge: independent ambulation Overall status at discharge: patient is progressing back to baseline Mental Status: mental status grossly normal Speech and Movement: speech and movement normal Mood: anxious mood Affect: anxious affect Time Spent with Patient providing and/or coordinating discharge services: Less than 30 minutes Exam Narrative Exam Narrative: Tearful female but alert and oriented person place time circumstance. Lungs are clear to auscultation. Heart is regular rate and rhythm without murmur rub or gallop. Psych Mental Status: mental status grossly normal Speech and Movement: speech and movement normal Mood: anxious mood Affect: anxious affect DS: Data Vitals/I&O Vitals and I&O: Vital Signs Temperature 35.5 C L 02/16/20 12:05 Temperature Source Tympanic 02/16/20 12:05 Pulse 110 H 02/16/20 12:05 Pulse Rhythm Regular 02/16/20 09:58 Pulse 63 02/14/20 23:40 Respiratory Rate 18 02/16/20 12:05 Respiratory Effort Non-Labored 02/16/20 09:58 Respiratory Depth Normal 02/16/20 09:58 Respiratory Pattern Normal 02/16/20 09:58 Blood Pressure 137/93 H 02/16/20 12:05 Blood Pressure Mean 87 02/14/20 23:34 Blood Pressure Position Sitting 02/14/20 21:48 Pulse Oximetry 100 02/16/20 12:05 Oxygen Delivery Method Room Air 02/16/20 12:05 Oxygen Flow Rate 0 02/16/20 12:05 Pain Level 1 02/16/20 07:40 Comment 02/15/20 06:56 Intake & Output 02/15/20 02/16/20 02/16/20 23:59 11:59 23:59 Intake Total 240 / 600 Balance 240 / 600 Weight 66 kg Intake: Oral 240 / 600 Other: Urine Color Yellow Urine Appearance Clear Clear Comment per patient patient has had difficulty with self elimination here, she feels it is due to the stress r/t testing Data Completed and Pending Labs on day of discharge: Labs from last 24 hours 02/16/20 02/15/20 06:10 10:15 WBC 5.59 RBC 4.19 Hgb 13.8 Hct 40.8 MCV 97.4 H MCH 32.9 MCHC 33.8 RDW 12.2 Plt Count 213 MPV 10.6 Urine Color Yellow Urine Clarity Clear Urine pH 5.5 Ur Specific [place] 1.010 Urine Protein Negative Urine Ketones Negative Urine Blood Negative Urine Nitrite Negative Urine Bilirubin Negative Urine Urobilinogen 0.2 Ur Leukocyte Esterase Moderate H Urine RBC Negative Urine WBC 5-10 Ur Epithelial Cells Few Urine Crystals Negative Urine Bacteria Moderate Urine Casts Negative Urine Mucus Negative Urine Other Negative Ur Culture Indicated? 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; now abstinant Alcohol abuse (Inactive) Anemia (Resolved) Anemia (Inactive) Atrophy of vagina (Chronic) Lilo infection (Resolved) 05/17/15 Candidiasis (Inactive 05/17/15) Chlamydia infection (Resolved) Chlamydial infection (Inactive) Chronic left shoulder pain (Chronic 03/30/18) Depressive disorder (Resolved) chronic family problems; prolonged use of norpramine Endometriosis (Resolved) s/p laparotomy; exploratory Endometriosis (Inactive) Hiatal hernia (Chronic) Hyperlipidemia (Chronic 10/25/12) Impaired fasting glucose (Resolved) Intention tremor (Resolved) Internal hemorrhoids (Chronic) 11/15/14; [facility] [place] Low back pain (Resolved 08/27/15) Osteopenia (Chronic) T scores -1.3; -1.0; -1.8 Pain of cervical facet joint (Chronic 08/08/13) Raynaud's disease (Chronic) Rectal hemorrhage (Resolved) internal hemorrhoid; hyperplastic tubular adenoma polyps Shoulder pain (Resolved) 05/22/14 Tension-type headache (Chronic) cyclical and occ. migraine Tubular adenoma (Resolved) Urinary tract infectious disease (Resolved) recurrent; prophylactic after intercourse most likely cystitis,not infectious Urinary tract infectious disease (Inactive) Surgical History section Colonoscopy - [facility] [place] 2002;2013 H/O section (Resolved) History of bilateral ligation of fallopian tubes (Inactive) History of bilateral tubal ligation (Resolved) History of section (Inactive) Laparotomy Ligation of fallopian tube Status post laparotomy (Inactive) Family History Mother , AGE 94 Heart disease Hyperlipidemia Stroke Father , AGE 98 Lung cancer Brother No problems noted. Maternal Grandfather , AGE 36 Aneurysm Stroke Paternal Grandfather , GALLBLADDER at age 76 Stroke Heart disease Maternal Grandmother , AGE 98 Colon cancer Paternal Grandmother , AGE 75 Stroke Heart disease Son No problems noted. Son Lymphoma Social History Smoking/Tobacco Use Status: Former Tobacco Use Quit Date: 11/16/73 Second Hand Exposure: Yes Alcohol Intake: current Alcohol Intake frequency: a few times a week Alcohol type: other Drug use: Never Substance use type: does not use Caregiver/Support person: No Household members: none Housing: house Communication Needs: Hard of Hearing Do you need help understanding health information?: Never Pets and animals: Yes Pets and animals: dog(s) Sexually active: No Do you think of yourself as: straight/heterosexual Current gender identity: female What is your relationship status?: How often do you talk on the phone with friends or family?: twice per week How often do you get together with friends or relatives?: twice per week How often do you attend evangelical or islam services?: 1-3 times per year Do you belong to any clubs or organized social groups?: yes Panel score (0-1 are the most socially isolated patients): 2 What type of physical activity do you participate in: other Details: snowshoeing Duration: 45-60 minutes/day Frequency: 3-4 times per week Neris/Anabaptism: Moravian Special neris needs: No Seatbelt use: always Helmet use: Yes Helmet use: always Drive intox or ride w/intox haulpak driver: No Do you feel safe at home: Yes Do you feel safe in your relationship?: Yes
--- NOTE | 2020-02-16 16:48 | CHAPLAIN ---
Lesli was sitting up on the edge of her bed when I visited. 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 We also talked about what she does to relax. She enjoys walking and snowshoeing with her dog. Her [place], [place], is now in remission from cancer. Lesli spent some time with him recently when he was going through a stem cell transplant, so his health, and low immune system currently, is a concern for her.
== END 2020-02-16 16:58 | disposition home or self-care (01) ==
LOC: ER 02-15 00:55 → MS 02-15 02:19
PROVIDERS: Admitting Provider Family Medicine; Emergency Provider Emergency Medicine; PCP Family Medicine; Visit Provider Internal Medicine
DX: R07.89 Other chest pain (principal); R94.31 Abnormal electrocardiogram [ECG] [EKG]; F41.9 Anxiety disorder, unspecified
CPT/HCPCS: 36415; 78452; 80053; 80061; 85027; 93005; 93016; 93018; 99219; 99225; 99232; 99238; 99285; 71046; 81003; 81015; 83735; 84484; 85025; 85379; 87086; 93010; 93017; 93306; 99217; G0378; J1644; J2785

== ENCOUNTER 2020-03-19 11:27 | Outpatient (CLI) | payer MEDICARE, BC, SELFPAY ==
[2020-03-20 18:36] LABS: COVID-19 RT-PCR UVMMC Result Negative (Negative)
== END 2020-03-19 11:47 ==
PROVIDERS: PCP Family Medicine; Visit Provider Family Medicine
DX: R06.02 Shortness of breath (principal); J02.9 Acute pharyngitis, unspecified
CPT/HCPCS: U0003

== ENCOUNTER 2020-04-30 02:17 | Outpatient (CLI) | payer MEDICARE, BC, SELFPAY ==
[2020-04-30 12:11] LABS: TSH (W/Ref FT4) 2.03 uIU/mL (0.36-3.74)
== END 2020-04-30 02:37 ==
PROVIDERS: PCP Family Medicine; Visit Provider Family Medicine
DX: R00.2 Palpitations (principal)
CPT/HCPCS: 36415; 84443

== ENCOUNTER 2020-05-15 02:46 | Outpatient (CLI) | payer MEDICARE, BC, SELFPAY ==
[2020-05-16 11:20] LABS: Lyme Ab w Rflx to Lyme Confirm Negative (Negative)
[2020-05-17 19:38] LABS: Anaplasma phagocytophilum Negative (Negative); B. miyamotoi PCR Negative (Negative); Babesia divergens/MO-1 Negative (Negative); Babesia duncani Negative (Negative); Babesia microti Negative (Negative); Ehrlichia chaffeensis Negative (Negative); Ehrlichia ewingii/canis Negative (Negative); Ehrlichia muris eauclairensis Negative (Negative)
== END 2020-05-15 03:06 ==
PROVIDERS: PCP Family Medicine; Visit Provider Family Medicine
DX: W57.XXXA Bitten or stung by nonvenomous insect and other nonvenomous arthropods, initial encounter (principal); T14.8XXA Other injury of unspecified body region, initial encounter; R53.83 Other fatigue; Z03.818 Encounter for observation for suspected exposure to other biological agents ruled out
CPT/HCPCS: 36415; 87798; U0003; 86618

== ENCOUNTER 2020-05-15 08:07 | Outpatient (CLI) | payer MEDICARE, BC, SELFPAY ==
[2020-05-16 01:54] LABS: COVID-19 RT-PCR UVMMC Result Negative (Negative)
== END 2020-05-15 08:27 ==
PROVIDERS: PCP Family Medicine; Visit Provider Family Medicine
DX: R53.83 Other fatigue (principal); Z03.818 Encounter for observation for suspected exposure to other biological agents ruled out
CPT/HCPCS: U0003

== ENCOUNTER 2020-05-22 01:07 | Outpatient (CLI) | payer MEDICARE, BC, SELFPAY ==
--- NOTE | 2020-05-22 13:22 | DI.DEXA_ITS ---
EXAM: XR DEXA BONE DENSITY W/WO CATERINA CLINICAL HISTORY: M81.0 Age-related osteoporosis wo current pathological fx,osteopenia M85.80 TECHNIQUE: [employer] C densitometer. COMPARISON: 31 May 2007 FINDINGS: The lateral view of the thoracic and lumbar spine shows no evidence of compression fractures. Degen erative disc changes are seen. The bone mineral density measurements of the lumbar spine correspond to a total T-score of -3.0, cons istent with osteoporosis. This is a 14.8 percent decrease in bone density when compared with 2006. The bone mineral density measurements of left hip correspond to a total T-score of -1.4 and a femoral neck T-score of -2.0, in the osteopenic range. The hip bone mineral density has decreased by 6.4 pe rcent. The left forearm bone mineral density measurements correspond to a T-score of the distal 3rd of -3.9, consistent with osteoporosis. The forearm was not analyzed on the previous exam. IMPRESSION: Osteoporosis of the left forearm and lumbar spine. Osteopenia of left hip.
== END 2020-05-22 01:27 ==
PROVIDERS: PCP Family Medicine; Visit Provider Family Medicine
DX: M81.0 Age-related osteoporosis without current pathological fracture (principal); M85.80 Other specified disorders of bone density and structure, unspecified site
CPT/HCPCS: 77080

== ENCOUNTER 2020-10-22 22:32 | Outpatient (REF) | payer MEDICARE, BC, SELFPAY ==
[2020-10-22 21:58] LABS: Abs Immature Grans 0.01 10^3/uL (0.0-0.06); Absolute Basophil Count 0.04 10^3/uL (0.0-0.2); Absolute Eosinophil Count 0.38 10^3/uL (0.0-0.7); Absolute Lymphocyte Count 1.88 10^3/uL (1.2-3.4); Absolute Monocyte Count 0.37 10^3/uL (0.1-0.8); Absolute Neutrophil Count 3.29 10^3/uL (1.2-6.7); Basophils % 0.7; Eosinophils % 6.4; HCT 40.6 % (36.0-46.0); HGB 13.3 g/dL (11.2-15.7); Immature Grans % 0.2; Lymphocytes % 31.5; MCH 33.1 pg (27.0-33.0); MCHC 32.8 % (32.0-36.0); MPV 11.3 fL (8.0-11.0); Monocytes % 6.2; Nucleated RBC 0 %; Platelet Count 248 10^3/uL (130-400); RBC 4.02 10^6/uL (3.93-5.22); RDW 11.6 % (11.7-14.6); RDW-SD 42.9 fL; WBC 5.97 10^3/uL (4.4-10.8)
[2020-10-22 22:20] LABS: ALT 28 U/L (14-59); AST 19 U/L (15-37); Albumin 3.9 g/dL (3.4-5.0); Alkaline Phosphatase 126 U/L (46-116); Anion Gap 8.6 mmol/L (3-11); BUN 19 mg/dL (7-18); Bilirubin, Total 0.2 mg/dL (0.2-1.0); CO2 26.4 mmol/L (21.0-32.0); CREATININE 1.17 mg/dL (0.55-1.02); Calcium 9.6 mg/dL (8.5-10.1); Chloride 101 mmol/L (98-107); Estimated GFR 45.73 (mL/min/1.73m2); Glucose 93 mg/dL (74-106); Sodium 136 mmol/L (136-145)
[2020-10-24 15:08] LABS: Chlamydia Result Negative (Negative); GC Result Negative (Negative)
== END 2020-10-22 22:52 ==
LOC: LBN 22:32
PROVIDERS: PCP Family Medicine; Visit Provider Physician Assistant
DX: R10.2 Pelvic and perineal pain (principal); N76.0 Acute vaginitis; N39.0 Urinary tract infection, site not specified
CPT/HCPCS: 80053; 87491; 87591; 85025; 87086; 87480; 87510; 87660

== ENCOUNTER 2020-10-31 00:30 | Outpatient (CLI) | payer MEDICARE, BC, SELFPAY ==
--- NOTE | 2020-10-31 07:00 | DI.CT_ITS ---
EXAM: CT ABDOMEN PELVIS W CLINICAL HISTORY: pelvic pain, back pain,r10.2 TECHNIQUE: Imaging Protocol: Axial computed tomography images with coronal and sagittal reformatted images were created and reviewed CONTRAST MATERIAL: Intravenous: Omnipaque 350 Contrast volume:100 mL Oral: Yes COMPARISON: No exams were available for comparison FINDINGS: ABDOMEN: Lung Bases: Dependent atelectasis in the lung bases. Small hiatal hernia. Liver: There is diffuse decreased attenuation of the liver consistent with fatty infiltration. There is a tiny hypodensity in the right lobe of the liver. It is too small for further characterization but likely reflects a small cyst. Portal, Superior Mesenteric, and Splenic Veins: Unremarkable. Gallbladder and Biliary Tract: No radiodense calculus or dilation. Pancreas: Normal density, no abnormal calcifications or inflammatory process. Spleen: There are a few tiny hypodensities seen within the spleen. Adrenals: No masses seen. Kidneys: Normal size, contour and axis. No radiodense stones or obstructive uropathy. Tiny hypodensit ies are seen in the kidneys bilaterally. They are too small for further characterization but likely reflect small cysts. Abdominal Aorta: Abdominal portion non-dilated. Mild atherosclerosis. Bowel: No obstruction or bowel wall thickening. No evidence of acute appendicitis. Peritoneal Cavity: No ascites, collection or mesenteric inflammatory response. Lymph Nodes: Within normal limits. Bones: Degenerative changes are seen in the spine. No significant central spinal canal stenosis is s een. Bilateral neural foraminal narrowing is seen at L3-4 and L4-L5. Soft Tissues: Small fat containing umbilical hernia. PELVIS: Bladder: Symmetric distention, no gross wall thickening. Reproductive Organs: There is a 1.9 x 2.6 cm hypodense lesion in the left adnexa likely ovarian origi n. There are associated calcifications. Lymph Nodes: Within normal limits. Bones: Within normal limits. IMPRESSION: 1. Multilevel degenerative changes in the lumbar spine resulting in bilateral neural foraminal narrow ing at L3-4 and L4-L5. No significant central spinal canal stenosis. 2. 1.9 x 2.6 cm hypodense lesion in the left adnexa which appears to be ovarian in origin. There are associated calcifications. The lesion such as a dermoid should be considered. Pelvic ultrasound ma y be considered for further evaluation. 3. Hepatic steatosis. 4. No acute abdominal or pelvic process. RADIATION DOSE DELIVERED: 745.36mGy.cm Total DLP DATA REPOSITORY: All CT scans at this facility are submitted to the National Radiology Data Registry (NRDR) Dose Index Registry (DIR) with the [employer] (ACR). RADIATION OPTIMIZATION: All CT scans at this facility use at least one of these dose optimization te chniques: automated exposure control; mA and/or kV adjustment per patient size (includes targeted exa ms where dose is matched to clinical indication); or iterative reconstruction.
[2020-10-31] MEDS: Omnipaque 350 MG/ML 50 ML BTL PO (08:50)
[2020-10-31] MEDS: Breeza Beverage 473 ML BTL PO (08:52)
[2020-10-31] MEDS: Omnipaque 350 MG/ML 100 ML BTL IJ (09:55)
[2020-10-31] MEDS: Normal Saline - Diluent 50 ML VIAL IV (09:56)
[2020-10-31] MEDS: Normal Saline Flush 10 ML SYR IVP (09:56)
== END 2020-10-31 00:50 ==
PROVIDERS: PCP Family Medicine; Visit Provider Nurse Practitioner Adult Health
DX: M47.816 Spondylosis without myelopathy or radiculopathy, lumbar region (principal); M99.53 Intervertebral disc stenosis of neural canal of lumbar region; R10.2 Pelvic and perineal pain; K76.0 Fatty (change of) liver, not elsewhere classified; N83.8 Other noninflammatory disorders of ovary, fallopian tube and broad ligament
CPT/HCPCS: 74177; J3490; Q9967

== ENCOUNTER 2020-12-13 01:48 | Outpatient (CLI) | payer MEDICARE, BC, SELFPAY ==
--- NOTE | 2020-12-13 08:56 | DI.US_ITS ---
EXAM: US PELVIS TRANSVAGINAL CLINICAL HISTORY: F/U ABNL CT, PELVIC PAIN, R10.2,R93.89 TECHNIQUE: Ultrasound of the pelvis was performed both transabdominal and transvaginal. COMPARISON: US US ECHOCARDIOGRAM from 02/15/[address] ABDOMEN PELVIS W from 10/31/2020 FINDINGS: UTERUS: Measures 6 cm length x 0.5 cm AP x 3.7 cm wide. There is an anterior right of center almost fundal level fibroid measuring 2 x 1.5 x 1.7 cm Endometrial thickness measures 1.2 mm. There is no fluid in the endometrial canal. CERVIX: There are no obvious nabothian cysts. RIGHT OVARY: Measures 2.3 x 1.2 x 1.0 cm No significant cysts nor masses evident in the right ovary. LEFT OVARY: Measures 2.7 x 2.1 x 2.6 cm There is a cystic area in the left ovary with some peripheral calcification cluster, similar to the f inding on CT scan. CUL-DE-SAC: No free fluid evident. IMPRESSION: 1. Some mild to centimeter solitary uterine fibroid which is the right of center, anteriorly near the fundus. Nonthickened endometrium. No fluid in the endometrial canal. 2. Cystic peripherally calcified structure in the left ovary, correspond to what is seen on the recen t CT scan. Cannot exclude dermoid. There was satisfactory blood flow demonstrated in the ovary. 3. No free fluid evident in the adnexal regions and cul-de-sac. DATA REPOSITORY:
== END 2020-12-13 02:08 ==
PROVIDERS: PCP Family Medicine; Visit Provider Family Medicine
DX: D25.9 Leiomyoma of uterus, unspecified (principal); N83.202 Unspecified ovarian cyst, left side; R93.89 Abnormal findings on diagnostic imaging of other specified body structures
CPT/HCPCS: 76830; 76856

== ENCOUNTER 2020-12-26 02:18 | Outpatient (CLI) | payer MEDICARE, BC, SELFPAY ==
--- NOTE | 2020-12-26 12:25 | DI.MAMMO_ITS ---
EXAM: MAMMO SCREENING CLINICAL HISTORY: screening,z12.39 TECHNIQUE: Mammograms were interpreted according to the usual protocol including computer analysis w [employer]. CAD system, tomosynthesis and C-view imaging. COMPARISON: 2011 through 2018 FINDINGS: The patient did not tolerate compression well. The breasts are composed of scattered fibroglandular densities, Breast Density category B. No suspicious masses or suspicious microcalcifications are seen. No skin thickening or abnormal axillary lymph nodes are seen. There has been no significant change from prior exams. IMPRESSION: BI-RADS Category 1, Negative mammogram Yearly screening mammography is recommended. Breast Density - Category B, scattered fibroglandular densities. A negative radiographic report should not delay biopsy if a dominant or clinically suspicious mass is present. Up to ten percent of cancers are not identified on mammography. A negative report may reinforce clinical impression. Adenosis and dense breasts may obscure an underlying neoplasm. False positive reports average 6 to 10%. Patient will receive a letter notifying them of these results.
--- NOTE | 2020-12-26 12:57 | DI.RAD_ITS ---
EXAM: XR LUMBAR SPINE COMPLETE CLINICAL HISTORY: low back pain, acute, m54.5. TECHNIQUE: 2D digital imaging was performed. COMPARISON: CR XR DEXA BONE DENSITY W/WO CATERINA from 05/22/2020 MG MG MAMMO SCREENING from 12/26/2020 FINDINGS: BONES: No fracture or destructive lesion. Vertebral bodies are unremarkable. Facet degenerative cantor es are seen greatest at L4-5 and at L5-S1. DISKS: There is moderate narrowing of the L2-3 disc space. Marked narrowing is seen at the L3-4 and L4-5 disc spaces. Endplate osteophytes are noted at these levels. ALIGNMENT: Mild dextroscoliosis. Mild spondylolisthesis at L5-S1 secondary to facet joint degenerati ve changes. SOFT TISSUE: Normal. IMPRESSION: Degenerative disc changes and facet degenerative changes. No evidence of compression fracture. DATA REPOSITORY: RADIATION DOSE DELIVERED:
== END 2020-12-26 02:19 ==
LOC: DI 02:19
PROVIDERS: PCP Family Medicine; Visit Provider Family Medicine
DX: Z12.31 Encounter for screening mammogram for malignant neoplasm of breast (principal); M47.816 Spondylosis without myelopathy or radiculopathy, lumbar region; M43.17 Spondylolisthesis, lumbosacral region
CPT/HCPCS: 77063; 77067; 72110

== ENCOUNTER → 2021-02-18 12:53 | Outpatient (BNVA) | payer MEDICARE, BC, SELFPAY | PROVIDERS: PCP Family Medicine; Referring Provider Family Medicine; Visit Provider Surgery | DX: K21.9 Gastro-esophageal reflux disease without esophagitis (principal); Z12.11 Encounter for screening for malignant neoplasm of colon; Z80.0 Family history of malignant neoplasm of digestive organs; K44.9 Diaphragmatic hernia without obstruction or gangrene | CPT/HCPCS: 99203; 99214 ==

== ENCOUNTER 2021-03-04 02:45 | Outpatient (CLI) | payer MEDICARE, BC, SELFPAY ==
[2021-03-04 10:02] LABS: Source Nasal/Nares
[2021-03-04 13:23] LABS: COVID-19 PCR Negative (Negative)
== END 2021-03-04 02:46 | disposition home or self-care (01) ==
LOC: LBO 02:46
PROVIDERS: PCP Family Medicine; Visit Provider Surgery
DX: Z20.822 Contact with and (suspected) exposure to COVID-19 (principal); Z01.818 Encounter for other preprocedural examination
CPT/HCPCS: 87635

== ENCOUNTER 2021-03-05 09:10 | Day surgery (SDC) | payer MEDICARE, BC, SELFPAY ==
[2021-03-05 09:36] VITALS: BP 100/68; PULSE 62; RESP 16; TEMP 36.6; O2SAT 98
[2021-03-05] MEDS: Lactated Ringers 1,000 ML 80 ML IV (09:57)
--- NOTE | 2021-03-05 11:04 | STOM_PTH ---
PATIENT: Lesli Loving LOC: [facility] U#:[id number] AGE/SX: 71/F ROOM: RE03/05/[address]: Linda Dempsey : 1950 BED: DIS: 03/05/2021 SPEC #: [id number] RECD: 03/05/21 12:17 STATUS: DEVORAH RE #: [id number] MADALYN: 03/05/21 11:[address]: Linda Dempsey DEPT: Surgical Specimen RECD BY: America Bagley ENTERED: 03/05/21 12:19 SP TYPE: STOMACH OTHR DR: Anum Thomas MD, DC Tissues: 1 - BIOPSY BOWEL 2 - BIOPSY BOWEL 3 - STOMACH BIOPSY 4 - STOMACH BIOPSY 5 - STOMACH BIOPSY 6 - ESOPHAGUS BIOPSY 7 - ESOPHAGUS BIOPSY Procedures: GROSS AND MICRO LEVEL 4 Comments: [id number]
--- NOTE | 2021-03-05 11:48 | ENDO_ITS ---
Date of service: 03/05/21 Time of Service: 11:48 Endoscopy Report DATE OF PROCEDURE: 03/05/21 PRE-OP DIAGNOSIS: epigastric pain adn cough POST-OP DIAGNOSIS: other (hiatal hernia- small. erosive gasritis w/ small punctate ulcers - moderate. ) SURGEON: Linda Dempsey ANESTHESIA TYPE: General:No Airway ESTIMATED BLOOD LOSS: 1 PATHOLOGY: other COMPLICATIONS: None DISPOSITION: same day PROCEDURE DESCRIPTION: After informed consent was obtained the patient was take to the procedure room and placed in a supine position. Monitors were applied and a time out was done. The patients name, date of , procedure type, allergies to medications and metal in their body was reviewed. A bite block was placed and the patient was sedated. Once sedated and comfortable the gastroscope was advanced through the oropharynx which was grossly normal into the esophagus. The proximal and mid-esophagus were nl. In the distal esophagus there was: no Esophageal erosions, varices or diverticula. She does have a small hiatal hernia. The scope was advanced into the stomach and through the pylorus into the 3rd portion of the duodenum. The duodenum was noted to be nl. Biopsies were done-all specimens are retrieved and no bleeding is noted.. The scope was retracted back into the stomach and biopsies were done to rule out H. pylori. He does have a moderate gastritis in a striped fashion radiating out through the antrum. There are few small punctate erosive ulcerations around the antrum. Most of the erythema is concentrated in the antrum but it does carry out throughout the entire stomach. Multiple biopsies are taken. All specimens are retrieved and no bleeding is noted. The scope was retroflexed. The cardia and fundus were noted to be normal. There is a small a hiatal hernia noted. The scope was retracted back into the esophagus and biopsies were done of the GE junction to rule out Maldonado's. The Z line was regular. The scope was removed and the patient was woken up and taken back to [facility] in stable condition. Follow up: 2 wks trial of protonix
--- NOTE | 2021-03-05 11:51 | W.COLOREPORT ---
Date of service: 03/05/21 Time of Service: 11:51 Colonoscopy Report Date of procedure: 03/05/21 Pre-op diagnosis general: LLQ pain/family hx of CRC/A. polyps Post-op diagnosis procedure note: other (Minor diverticula with no signs of active bleeding or infection.) Surgeon: Linda Dempsey Anesthesia Type: General:No Airway Estimated blood loss (mL): 0 Pathology: none sent Complications: None Disposition: same day Prep: Miralax/Dulcolax Retraction Time: 9 mins Procedure Description: After informed consent was obtained the patient was taken to the procedure room and placed in a left decubitous position. Monitors were applied and a time out was done. The patients name, date of , procedure, allergies to medications and metal in their body was reviewed. The patient was then sedated. Once sedated and comfortable a rectal exam was done. External exam was normal. Internal exam revealed a normal sphincter tone and no palpable masses. The scope was then introduced and retrofelexed. No internal hemorrhoids were identified. The scope was then advanced to the cecum w/out difficulty. The TI and appendiceal orifice were identified. The prep was good. The scope was then slowly retracted over 9 minutes back into the rectum. She does have a very tortuous and redundant colon. There are no polyps or AVMs visualized today. She does have minor diverticula: They are very small and not very numerous. They are confined to the sigmoid colon. There is no signs of any active bleeding or infection. The mucosa appears pink and healthy. The scope was removed and the patient was woken up and taken back to Same day surgery in stable condition. The patient tolerated the procedure well and there were no immediate complications. Follow up: The patient does not require any further colonoscopies, unless they develop changes in bowel habits or other new gastrointestinal complaints. If she is still healthy for anesthesia and an additional 5 years, repeat colonoscopy could be considered for screening purposes because of her family history of colorectal cancer.
--- NOTE | 2021-03-05 12:30 | PDOC.DSDIS_ITS ---
Discharge Plan Disposition Patient Disposition: HOME Condition: Good Discharge Details Reason For Visit: EGD/[facility] Attending Provider: Linda Dempsey Primary Care Provider: Anum Thomas Home Meds and New Rx's Prescriptions: New pantoprazole [Protonix] 40 mg tablet,delayed release (DR/EC) 40 mg PO DAILY Qty: 30 RF: 12 Continued nystatin 100,000 unit/gram cream 1 applic Topical BID PRN (Reason: rash) Qty: 15 RF: 0 fluoxetine 20 mg tablet 20 mg PO DAILY Qty: 90 RF: 4 desipramine 25 mg tablet 25 mg PO BID Qty: 180 RF: 12 estradiol [Yuvafem] 10 mcg tablet 10 mcg vaginal .3 times weekly Qty: 36 RF: 4 triamcinolone acetonide 0.1 % cream 1 applic topical BID Qty: 80 RF: 0 estradiol 0.01 % (0.1 mg/gram) cream 1 g vaginal DAILY Qty: 42.5 RF: 5 albuterol sulfate 90 mcg/actuation HFA aerosol inhaler 2 puff IH QID Qty: 8.5 RF: 4 propranolol 80 mg tablet 80 mg PO BID Qty: 180 RF: 4 trazodone 100 mg tablet 100 mg PO QHS Qty: 90 RF: 4 [id number] [Fiorinal-Codeine #3] [id number] mg capsule 1 cap PO BID PRN Qty: 25 RF: 0 lorazepam 0.5 mg tablet 0.5 mg PO DAILY PRN (Reason: anxiety) Qty: 30 RF: 0 Discontinued omeprazole 20 mg capsule,delayed release(DR/EC) 20 mg PO DAILY Qty: 90 RF: 4 aspirin [Aspirin Low-Strength] 81 MG tablet,chewable 81 mg PO DAILY RF: 0 Discharge Instructions Additional Instructions: Findings:moderate erosive gastritis/hiatal hernia very minor diverticular disease/tortuous colon Follow up: 2 wks Continue with lifestyle modifications: no alcohol, tobacco products, Aspirin or NSAID's (ibuprofen, Motrin, Naprosyn, aleve, etc), soda pop/any carbonated beverages, caffeine (including tea & chocolate), and acidic foods, (tomatoes, citrus, onions, peppermints) spicy foods. Do not lie down for 30 minutes after eating, and do not eat 2 hours prior to bedtime. Avoid wearing tight fitting clothing/ belts Please call if you develop: fevers >101.5 Nausea or Vomiting Abdominal pain that is not transient DAY SURGERY UNIT POST COLONOSCOPY INSTRUCTIONS 1. Because there will be medication in your system for the next 24 hours, you may feel a little sleepy. Your coordination will be affected. Therefore: a. Do not drive or operate dangerous equipment for 24 hours. b. Do not drink alcohol beverages for 24 hours (not even beer). c. Plan to go home and rest for the day. 2. Generally there are no restrictions on your activity after a day or so has gone by, but you may feel a bit fatigued for a few days. 3 After you arrive home you may have a light meal and return to a normal diet as you can tolerate it without feeling sick to your stomach. 4. After surgery, you may feel pain or discomfort. This should be only transient, but if it persists please contact your doctor. 5. If there are any questions regarding the findings of your procedure, please feel free to contact your doctor. 6. If you are unable to contact your doctor with a problem, contact the hospital at [phone]. 7. Continue all your regular medications unless directed otherwise. I understand the above instructions and have no questions. Signature of Patient or Responsible Adult Escort Date/Time Name of Responsible Adult Escort Signature of Nurse Date/Time Activity:: No strenuous activity or lifting over 20 pounds x 24 hours. Diet:: Small light meals x24 hours. Discharge Orders Discharge Orders: Discharge Order (Routine); Ordered 03/05/21 Ordered By: Linda Dempsey DS: Diagnosis Discharge Diagnosis (1) Chronic erosive gastritis: Status: Acute (2) Chronic GERD: Status: Acute (3) Hiatal hernia: Status: Chronic (4) Rectal bleeding: Status: Acute (5) Tubular adenoma: Status: Acute (6) Family history of colon cancer: Status: Acute
[2021-03-05 12:35] VITALS: BP 105/65; PULSE 66; RESP 16; TEMP 36.2; O2SAT 96
[2021-03-05] MEDS: Normal Saline Flush 10 ML SYR IV (12:41)
[2021-03-05] MEDS: Pantoprazole 40 MG VIAL IVP (12:41)
== END 2021-03-05 13:44 | disposition home or self-care (01) ==
PROVIDERS: PCP Family Medicine; Visit Provider Surgery
PROC: (CPT 43239; principal; 2021-03-05 10:00)
DX: Z12.11 Encounter for screening for malignant neoplasm of colon (principal); Z86.010 Personal history of colon polyps; Z80.0 Family history of malignant neoplasm of digestive organs; Q43.8 Other specified congenital malformations of intestine; K57.30 Diverticulosis of large intestine without perforation or abscess without bleeding; K29.00 Acute gastritis without bleeding; K29.70 Gastritis, unspecified, without bleeding; K62.5 Hemorrhage of anus and rectum; K21.9 Gastro-esophageal reflux disease without esophagitis; K44.9 Diaphragmatic hernia without obstruction or gangrene
CPT/HCPCS: 43239; G0105; 88305; J2001

== ENCOUNTER → 2021-03-21 09:34 | Outpatient (BNVA) | payer MEDICARE, BC, SELFPAY | PROVIDERS: PCP Family Medicine; Referring Provider Family Medicine; Visit Provider Surgery | DX: K59.1 Functional diarrhea (principal); R10.9 Unspecified abdominal pain; K29.40 Chronic atrophic gastritis without bleeding; K21.9 Gastro-esophageal reflux disease without esophagitis | CPT/HCPCS: 99213; 99214 ==

== ENCOUNTER 2021-07-11 02:06 | Outpatient (CLI) | payer MEDICARE, BC, SELFPAY ==
--- NOTE | 2021-07-11 07:35 | DI.US_ITS ---
Exam(s) US ABDOMEN EXAM: US ABDOMEN CLINICAL HISTORY: abdominal pain/diarrhea,k59.1,r10.9 TECHNIQUE: Ultrasound of complete upper abdomen performed using standard protocol. COMPARISON: US US PELVIS TRANSVAGINAL from 12/13/2020 FINDINGS: There is no ascites evident. LIVER: The liver is hyperechoic indicating steatosis. There are no discrete focal hepatic lesions id entified. GALLBLADDER/BILIARY: There are no gallstones. No gallbladder wall edema nor pericholecystic fluid. The common hepatic duct isnot dilated, measuring 4mm at the level of stephon hepatis. PANCREAS: There is no evidence of pancreatic mass nor dilatation of the pancreatic duct. SPLEEN: The spleen is not enlarged and there are no intrasplenic lesions evident. KIDNEYS:Right kidney measures 10 cm length. Left kidney measures 8.7 cm length. Kidneys exhibit nor mal cortical thickness and normal corticomedullary differentiation. No solid masses. No cysts. How ever, there are bilateral echogenic foci consistent with bilateral nonobstructive calculi in the kidn eys. There is 4 millimeter nonobstructive calculus of the midpole the right kidney. Multiple small calculi in left kidney also noted average size 3 millimeters. ABDOMINAL AORTA: There is no evidence of abdominal aortic aneurysm. IVC: Normal diameter where visualized. IMPRESSION: 1. No evidence of cholelithiasis nor dilatation of the biliary tree. 2. Paddock steatosis. Correlation with appropriate hepatic blood work is recommended. 3. Bilateral small nonobstructive renal calculi noted. No hydronephrosis. DATA REPOSITORY:
== END 2021-07-11 02:26 ==
PROVIDERS: PCP Family Medicine; Visit Provider Surgery
DX: R10.9 Unspecified abdominal pain (principal); K59.1 Functional diarrhea; K21.9 Gastro-esophageal reflux disease without esophagitis; K29.40 Chronic atrophic gastritis without bleeding; F41.1 Generalized anxiety disorder; K44.9 Diaphragmatic hernia without obstruction or gangrene; F98.8 Other specified behavioral and emotional disorders with onset usually occurring in childhood and adolescence; N20.0 Calculus of kidney; K76.0 Fatty (change of) liver, not elsewhere classified
CPT/HCPCS: 76700

== ENCOUNTER 2022-01-22 03:49 | Outpatient (CLI) | payer MEDICARE, SELFPAY ==
[2022-01-22 12:25] LABS: HCT 39.8 % (36.0-46.0); MCH 32.2 pg (27.0-33.0); MCHC 32.7 % (32.0-36.0); MCV 98.5 fL (80-95); MPV 10.5 fL (8.0-11.0); Platelet Count 232 10^3/uL (130-400); RBC 4.04 10^6/uL (3.93-5.22); RDW 11.7 % (11.7-14.6); RDW-SD 42.3 fL; WBC 4.22 10^3/uL (4.4-10.8)
[2022-01-22 12:42] LABS: Hemoglobin A1C 5.3 % (<5.7)
[2022-01-22 13:26] LABS: ALT 14 U/L (14-59); AST 12 U/L (15-37); Albumin 3.5 g/dL (3.4-5.0); Alkaline Phosphatase 116 U/L (46-116); Anion Gap 7.1 mmol/L (3-11); BUN 11 mg/dL (7-18); Bilirubin, Total 0.3 mg/dL (0.2-1.0); CO2 28.9 mmol/L (21.0-32.0); CREATININE 0.9 mg/dL (0.55-1.02); Calculated LDL 197 mg/dL (<100); Chloride 102 mmol/L (98-107); Cholesterol 294 mg/dL (<200); Glucose 89 mg/dL (74-106); HDL Cholesterol 77 mg/dL (40-60); Potassium 4.1 mmol/L (3.5-5.1); Sodium 138 mmol/L (136-145); TSH (W/Ref FT4) 1.56 uIU/mL (0.36-3.74); Total Protein 6.4 g/dL (6.4-8.2); Triglyceride 100 mg/dL (<150)
== END 2022-01-22 03:50 | disposition home or self-care (01) ==
LOC: LBO 03:49
PROVIDERS: PCP Family Medicine; Visit Provider Family Medicine
DX: E11.9 Type 2 diabetes mellitus without complications (principal); F41.1 Generalized anxiety disorder; G47.00 Insomnia, unspecified; R63.4 Abnormal weight loss; E78.5 Hyperlipidemia, unspecified; K44.9 Diaphragmatic hernia without obstruction or gangrene
CPT/HCPCS: 36415; 80053; 80061; 85027; 83036; 84443

== ENCOUNTER → 2024-03-08 04:00 | Outpatient (CLI) | payer MEDICARE, SELFPAY ==
--- NOTE | 2024-03-08 12:40 | DI.MAMMO_ITS ---
Exam(s) MAMMO SCREENING EXAM: MAMMO SCREENING CLINICAL HISTORY: screening,Z12.39. TECHNIQUE: Bilateral full field digital CC and MLO mammographic images were obtained with 3D tomosyn thesis and utilizing computer aided detection (CAD). COMPARISON: Prior mammograms were reviewed. FINDINGS: There has been no significant change in the appearance and distribution of the fibroglandular tissue. There are no CAD designations. There are no new spiculated masses nor malignant appearing microcalcification groups. There is no significant architectural distortion nor skin thickening-retraction. IMPRESSION: No radiographic evidence of malignancy. BI-RADS Category 1 - Negative Breast Density - Category B - Scattered areas of fibroglandular density Breast density Category C or D implies that the patient has dense breast tissue. Dense breast tissue can make it harder to find cancer on a mammogram. Dense breast tissue is also associated with an incr eased risk of breast cancer. This information about the result of the mammogram report was provided to the patient to raise their awareness. Use this report when you speak with the patient about their risks for breast cancer, which includes their family history. At that time, you may recommend additional screening tests (Ultrasoun d or MRI) as these tests may add significant information. A negative radiographic report should not delay biopsy if a dominant or clinically suspicious mass is present. Up to ten percent of cancers are not identified on mammography. A negative report may reinforce clinical impression. Adenosis and dense breasts may obscure an underlying neoplasm. False positive reports average 6 to 10%. Patient will receive a letter notifying them of these results.
== END ==
PROVIDERS: PCP Family Medicine; Visit Provider Family Medicine
DX: Z12.31 Encounter for screening mammogram for malignant neoplasm of breast (principal)
CPT/HCPCS: 77063; 77067

== ENCOUNTER 2025-04-25 01:34 | Outpatient (CLI) | payer MEDICARE, SELFPAY ==
--- NOTE | 2025-04-25 07:38 | DI.MAMMO_ITS ---
Exam(s) MAMMO SCREENING EXAM: MAMMO SCREENING CLINICAL HISTORY: screening,Z12.39. TECHNIQUE: Bilateral full field digital CC and MLO mammographic images were obtained with 3D tomosyn thesis and utilizing computer aided detection (CAD). COMPARISON: Prior mammograms were reviewed. FINDINGS: There has been no significant change in the appearance and distribution of the fibroglandular tissue. There are no CAD designations. There are no new spiculated masses nor malignant appearing microcalcification groups. There is no significant architectural distortion nor skin thickening-retraction. IMPRESSION: No radiographic evidence of malignancy. BI-RADS Category 1 - Negative Breast Density - Category B - There are scattered areas of fibroglandular density. Breast density Category C or D implies that the patient has dense breast tissue. Dense breast tissue can make it harder to find cancer on a mammogram. Dense breast tissue is also associated with an incr eased risk of breast cancer. This information about the result of the mammogram report was provided to the patient to raise their awareness. Use this report when you speak with the patient about their risks for breast cancer, which includes their family history. At that time, you may recommend additional screening tests (Ultrasoun d or MRI) as these tests may add significant information. A negative radiographic report should not delay biopsy if a dominant or clinically suspicious mass is present. Up to ten percent of cancers are not identified on mammography. A negative report may reinforce clinical impression. Adenosis and dense breasts may obscure an underlying neoplasm. False positive reports average 6 to 10%. Patient will receive a letter notifying them of these results.
== END 2025-04-25 01:54 ==
LOC: DI 01:34
PROVIDERS: PCP Family Medicine; Visit Provider Family Medicine
DX: Z12.31 Encounter for screening mammogram for malignant neoplasm of breast (principal); R92.323 Mammographic fibroglandular density, bilateral breasts
CPT/HCPCS: 77063; 77067

== ENCOUNTER 2025-04-25 02:21 | Outpatient (CLI) | payer MEDICARE, SELFPAY ==
[2025-04-25 16:42] LABS: ALT 19 U/L (14-59); AST 14 U/L (15-37); Albumin 3.6 g/dL (3.4-5.0); Alkaline Phosphatase 129 U/L (46-116); Anion Gap 5.9 mmol/L (3-11); BUN 10 mg/dL (7-18); CO2 29.1 mmol/L (21.0-32.0); CREATININE 0.9 mg/dL (0.55-1.02); Calcium 8.9 mg/dL (8.5-10.1); Calculated LDL 164 mg/dL (<100); Chloride 104 mmol/L (98-107); Cholesterol 266 mg/dL (<200); Estimated GFR 66.67 (mL/min/1.73m2); Glucose 98 mg/dL (74-106); HDL Cholesterol 78 mg/dL (>or=50); Potassium 4.4 mmol/L (3.5-5.1); Sodium 139 mmol/L (136-145); Triglyceride 123 mg/dL (<150); Vitamin B12 269 pg/mL (193-986)
[2025-04-25 18:11] LABS: Bilirubin, Total 0.3 mg/dL (0.2-1.0)
[2025-04-26 09:51] LABS: Hepatitis C Ab w Rflx HCV PCR Negative (Negative)
== END 2025-04-25 02:22 | disposition home or self-care (01) ==
LOC: LBO 02:21
PROVIDERS: PCP Family Medicine; Visit Provider Family Medicine
DX: Z11.59 Encounter for screening for other viral diseases (principal); I10 Essential (primary) hypertension; K21.9 Gastro-esophageal reflux disease without esophagitis
CPT/HCPCS: 36415; 80053; 80061; 86803; 82607